=== PATIENT | male | born 1955 ===

== ENCOUNTER 2019-01-14 08:00 | Inpatient (IN) | payer OTHER ==
[2019-02-13] MEDS ORDERED: BUPIVACAINE LIPOSOME/PF (EXPAREL) 266 MG/20 ML VIAL ONE ×2 (07:39→08:11)
[2019-02-13] MEDS ORDERED: HEPARIN NA (PORCINE) 5,000 UNITS/ML 1ML VIAL ONE ×3 (07:40→08:24)
[2019-02-13] MEDS ORDERED: BUPIVACAINE HCL/PF 0.25% (2.5MG/ML) 10 ML VIAL ONE (07:40)
[2019-02-13] MEDS ORDERED: BENZOIN TINCTURE SWABSTICK TP ONE (07:41)
[2019-02-13] MEDS ORDERED: THROMBIN (BOVINE) 20,000 UNIT VIAL TP ONE (07:41)
[2019-02-13] MEDS ORDERED: ROCURONIUM BROMIDE 50 MG/5 ML SYRINGE ONE ×2 (07:49→12:27)
[2019-02-13] MEDS ORDERED: PROPOFOL 20 ML ONE ×16 (07:49→11:31)
[2019-02-13] MEDS ORDERED: fentaNYL CITRATE 250 MCG/5 ML VIAL ONE ×3 (07:49→11:16)
[2019-02-13] MEDS ORDERED: MIDAZOLAM HCL 2 MG/2 ML SINGLE DOSE VIAL ONE ×2 (07:49→08:12)
[2019-02-13] MEDS ORDERED: SUCCINYLCHOLINE CHLORIDE 200 MG/10 ML SYRINGE ONE (07:49)
[2019-02-13] MEDS ORDERED: BUPIVACAINE HCL/PF 0.5% (5 MG/ML) 30 ML VIAL IJ ONE (08:12)
[2019-02-13] MEDS ORDERED: THROMBIN (BOVINE) 5,000 UNIT VIAL TP ONE ×2 (08:25→10:33)
[2019-02-13] MEDS ORDERED: ceFAZolin SODIUM 1 GM VIAL IVPB ONE (09:00)
[2019-02-13] MEDS ORDERED: DEXAMETHASONE SOD PHOSPHATE 4 MG/1 ML VIAL ONE ×2 (09:01→13:18)
[2019-02-13] MEDS ORDERED: ceFAZolin SODIUM 1 GM VIAL ONE ×2 (09:01→14:06)
[2019-02-13] MEDS ORDERED: VANCOMYCIN 1,000 MG VIAL (RESTRICTED TO ID ONLY) ONE (09:01)
[2019-02-13] MEDS ORDERED: ONDANSETRON 4 MG/2 ML VIAL ONE ×2 (09:01→13:18)
[2019-02-13] MEDS ORDERED: VANCOMYCIN 1,000 MG VIAL (RESTRICTED TO ID ONLY) IVPB ONE (09:05)
[2019-02-13] MEDS ORDERED: GELATIN, ABSORBABLE 12-7MM EACH SPONGE TP ONE (10:33)
--- NOTE | 2019-02-13 12:41 | PN ---
Progress Note (short form) - Note Progress Note: 63M s/p L2-L3, L3-L4, & L4-L5 PLIF w/L2-L5 posterior instrumented spinal fusion POD #0: -Admit to ICU post-op. -Pain control: patient received pre-op TLIP block w/Exparel; OK to use HEAD RIGGER if needed; transition to oral analgesia post-op; NO NSAID's. -DVT PPx: -Mechanical only: WILLARD's, SCD's. -Chemical: None. -Incentive spirometry q15 min. -NPO until flatus. -Gibson care; d/c when ambulating. -Post-op Ancef q6h x 3 doses. -PT/OT/Rehab, OOB. -WBAT B/L LE. -No bending, lifting (>5 lbs), or twisting for 9-12 months. -Care per ICU & medical hospitalist Dr. Meadows. -Discharge planning: [facility]; call for appointment; . -Will follow. Octavio Harvey MD (Orthopaedic Surgery).
--- NOTE | 2019-02-13 12:46 | OP ---
Operative Note - Note: Operative Date: 02/13/19 Pre-Operative Diagnosis: L2-L5 spinal stenosis with neurogenic claudication, radiculopathy, and neurological decline. Severity of illness: 4. Operation: 1. L2, L3, L4, L5, S1 bilateral laminectomies facetectomies. 2. L2- S1 posterior instrumentation. 4. L2-L3, L3-L4, L4-L5 PLIF. 5. L2-L3, L3-L4, L4 -L5 insertion biomechanical device. 6. L2-S1 posterolateral arthrodesis. 7. Bone allograft. 8. Bone autograft. 9. Bone marrow aspiration & concentrate autograft. 10. Complex wound closure (30cm) Post-Operative Diagnosis: Same as Pre-op Surgeon: Octavio Harvey Software Design Manager: Tom Harvey Anesthesiologist/EXECUTIVE SEARCH CONSULTANT: Tony Potts Anesthesia: General, Local (TLIP) Specimens Removed: L2-L3, L3-L4, L4-L5 disc Estimated Blood Loss (mls): 300 Drains & Tubes with Location: 1 x deep HemoVac Blood Volume Replaced (mls): 125 (Cell Saver) Fluid Volume Replaced (mls): 1,800 (Crystalloid) Operative Report Dictated: Yes
[2019-02-13] MEDS ORDERED: ACETAMINOPHEN INJECTION 100 ML IVPB ONE (13:39)
[2019-02-13] MEDS ORDERED: GLYCOPYRROLATE 0.2 MG/1 ML VIAL ONE (14:01)
[2019-02-13] MEDS ORDERED: SODIUM CHLORIDE 0.9% P/F 10 ML VIAL IJ ONE (14:06)
[2019-02-13] MEDS ORDERED: MAG HYDROX/AL HYDROX/SIMETH 30 ML UNIT-DOSE CUP PO PRN (14:16)
[2019-02-13] MEDS ORDERED: MAGNESIUM HYDROX 2400MG/30ML ORAL SUSPENSION 30 ML CUP PO PRN (14:16)
[2019-02-13] MEDS ORDERED: LORazepam 2 MG/ML SDV VIAL ONE (14:18)
[2019-02-13] MEDS ORDERED: DEXAMETHASONE SOD PHOSPHATE 4 MG/1 ML VIAL IVPUSH PRN (14:24)
[2019-02-13] MEDS ORDERED: ONDANSETRON 4 MG/2 ML VIAL IVPUSH PRN (14:24)
[2019-02-13] MEDS ORDERED: PROMETHAZINE HCL 25 MG/1 ML VIAL IVPB PRN (14:24)
[2019-02-13] MEDS ORDERED: LABETALOL HCL 5 MG/1 ML (100MG/20 ML VIAL) IVPUSH ONE (14:28)
[2019-02-13] MEDS ORDERED: LACTATED RINGERS SOLUTION 1,000 ML IV SCH ×2 (14:30)
[2019-02-13] MEDS: HYDROmorphone *PCA* 10MG/50ML DISP.SYRIN PCA SCH (14:50)
--- NOTE | 2019-02-13 16:50 | OP ---
DATE OF OPERATION: 02/13/2019 SURGEON: Octavio Harvey MD DIRECTOR ORACLE: Tom Harvey MD PREOPERATIVE DIAGNOSES: Spinal stenosis, L3 to S1, with kyphosis and segmental instability, lumbar spine. POSTOPERATIVE DIAGNOSES: Spinal stenosis, L2 to S1, with associated segmental instability and kyphosis. OPERATION PERFORMED: 1. Laminectomy, left, with undercutting facetectomy, L2 to S1. 2. Laminectomy with undercutting superior facetectomy, right L2 to S1. 3. Posterior lumbar interbody fusion, L2-3, L3-4, L4-5. 4. Insertion of interbody biomechanical device (cage), L2-3, L3-4, L4-5. 5. Pedicle screw instrumentation, L2, 3, 4, 5, S1. 6. Posterolateral arthrodesis, L2, 3, 4, 5, S1. 7. Niño-Angeles osteotomy, L3-4. 8. Use of biplane fluoroscopy and intraoperative neuromonitoring. 9. Use of bone marrow aspirate concentrate. 10. Use of autologous bone graft expanded with allograft 11. Complex wound closure, 30 cm. ANTIBIOTICS GIVEN: Kefzol 2 g, vancomycin 1 g preoperative, Kefzol 1 g given during the time of the procedure. BLOOD LOSS: Approximately 300 mL. Cell Saver blood 25 mL given back. OPERATION DETAILS: Patient correctly identified, brought in the operating room. The patient was placed prone on the operating room table (Kyler table). All associated bony points padded and the table seated at 10 degrees of ante-Trendelenburg. The skin was prepped with Betadine scrub solution, wiped off with alcohol, DuraPrep applied, a window drape applied. A midline incision was utilized from the tip of the spinous process of L1 right down to the tip of the spinous process of S1. The difficulty here was the naming of the levels for surgery. On imaging, we labeled a vestigial disk between S1 and S2 and labeled the S1 vertebral body, which some would have labeled as L5, but we elected to call that S1, but at operative findings was there was motion at this level with this vestigial [place] disk and this was therefore labeled as L5, and then the appropriate decompression which was planned for L3 then was taken up to L2, this because of the numerical nomenclature. To start, the dissection was taken through the skin and subcutaneous tissue down the spinous processes over the lamina and facet joints to expose the entire lumbar spine out to the tips of transverse processes from L2 right down to the ala of the sacrum. Verification of levels noted on lateral fluoroscopic x-ray as well. We also utilized motion at the segments and anatomical guidelines intraoperatively. The laminae from L2 to S1 were completely decompressed using Leksell rongeurs as well as Kerrison up cuts. In order to gain access to the superior facets, both left and right-hand side at each level, the pars interarticularis and inferior facets were osteotomized and broken inwards, and this was done L2 right down to S1, both left and right-hand side. All bone delivered was used for bone graft purposes. The superior facets were clearly visualized with the extensive amount of soft tissue and the extensive stenosis seen at L4-5 noted, but readily noted also at L2-3 and L3-4. Through digital palpation through the theca, the large lumps of disks were readily appreciated. Each disk was then dealt with as follows: The theca was retracted from right to left. Each disk was identified. Bipolar Bovie dealt with the epidural veins, and each disk was incised and disk removed using appropriate disk shaving devices and serrated curettes to facilitate removal of any material on the endplates, and pituitary rongeurs to remove all the disk material appropriately. Each disk was resected down to healthy bleeding endplates, cranially and caudally, at each respective level, that is, L2-3, L3-4, and L4-5. Once this at each one had been performed, the cages were press-fitted into position, that is, shaved to 1 level less than the actual size of implant utilized. Prior to the insertion of each cage, the inter-disk space was packed with autologous bone graft. This was bone that had been harvested from the posterior elements, milled and appropriately packed into the inter-disk space appropriately. Once this had been performed, the appropriate cages were inserted, as outlined above. The cages at L3-4 measured 9 mm; that at L4-5, 11 mm; and that at L2-3, 10 mm. These were Fortilink spaces. Excellent verification of the cages verified on x-ray, revealed beautiful reconstitution of disk height and the entire theca was freed, each nerve root seen to exit out of each foramen appropriately. Once this had been performed, with no complications, the pedicle screws were seated and each pedicle screw was inserted using anatomic guidelines. A 4.5 drill was utilized, each drilled, and each pedicle screw measured 6.5 x 45. Each pedicle screw was then tested with intraoperative neuromonitoring and found to be completely safe. The right L5 screw measured 14 mA. The rest of the screws were all above 20 mA. Two rods were contoured, one measured 110 mm and the other measured 120 mm. These rods were seated in position into the tulips of each pedicle screw. The caps were applied appropriately and the torque devices tightened the screws to the appropriate wind tunnel technician levels. A medium crosslink was utilized. The wound was thoroughly lavaged throughout. At that point, 120 mL of marrow as aspirated from the right posterior ilium. A Jamshidi needle was placed separately into the ilial bed to aspirate 120 mL. These were spun down by the team for the CD34 stem cells. These were mixed with the autograft as well as the allograft strips. The combination of autologous and allograft bone was impacted into the intertransverse plane from L2 to S1, both left and right-hand side, to thus complete the posterolateral arthrodesis. The wounds again were thoroughly lavaged. No complications. AP and lateral x-rays revealed excellent seating of the implants, no sponges in situ. No intraoperative neuromonitoring complications noted. The wounds were closed, as follows, that is, after a small debridement of the erector spinae muscles because of fragmented muscle. The closure was a complex closure, with muscle 1 Vicryl, fascia 1 Vicryl, subcutaneous 1 and 2-0 Vicryl in separate layers, and a 3-0 Monocryl with Steri-Strips applied to the skin. This measured 30 cm. The deep space of the wound was drained using a 1/8-inch Hemovac drain. No complications. Overall, operation went extremely well. Severe stenosis of the theca was completely freed, all disks dealt with appropriately, and the spine stabilized. Due to the Niño-Angeles osteotomy, the resection resulted in an excellent hoahaoism of lordosis. MD JENN Wood/[id number]
--- NOTE | 2019-02-13 17:41 | CONSULT ---
Consultation: REQUESTING PROVIDER: Dr. Harvey CONSULT REQUEST: We have been asked to medically evaluate this patient for post- operative monitoring s/p L2-L3, L3-L4, & L4-L5 PLIF w/L2-L5 posterior instrumented spinal fusion. HISTORY OF PRESENT ILLNESS: David Angulo is a 63 year old male with a past medical history of NH (5 years ago), HLD, GERD, kidney stones, spinal stenosis with neurogenic claudication who presented for surgery with Dr. Harvey. He underwent L2, L3, L4, L5, S1 bilateral laminectomies facetectomies, L2-S1 posterior instrumentation., L2-L3, L3-L4, L4-L5 PLIF, L2-L3, L3-L4, L4-L5 insertion biomechanical device, L2-S1 posterolateral arthrodesis, Bone allograft, bone autograft, Bone marrow aspiration & concentrate autograft, and Complex wound closure (30cm). EBL 300cc , replaced with 125cc of cell saver and 1800 fluids. Patient arrived in stable condition with intermittent lethargy from anesthesia with linares catheter, and dressing dry and intact. Complained of back soreness. Denied chest pain, shortness of breath, abdominal pain, fever, chills, weakness, nausea, vomiting. PMHx: NH (5 years ago), HLD, GERD, kidney stones, spinal stenosis with neurogenic claudication Surgery: Kidney stones Social: former smoker, marijuana user REVIEW OF SYSTEMS: CONSTITUTIONAL: Absent: fever, chills, diaphoresis, generalized weakness, malaise, loss of appetite, weight change HEENT: Absent: rhinorrhea, nasal congestion, throat pain, throat swelling, difficulty swallowing, mouth swelling, ear pain, eye pain, visual changes CARDIOVASCULAR: Absent: chest pain, syncope, palpitations, irregular heart rate, lightheadedness , peripheral edema RESPIRATORY: Absent: cough, shortness of breath, dyspnea with exertion, orthopnea, wheezing, stridor, hemoptysis GASTROINTESTINAL: Absent: abdominal pain, abdominal distension, nausea, vomiting, diarrhea, constipation, melena, hematochezia GENITOURINARY: Absent: dysuria, frequency, urgency, hesitancy, hematuria, flank pain, genital pain MUSCULOSKELETAL: back pain Absent: myalgia, arthralgia, joint swelling, neck pain SKIN: Absent: rash, itching, pallor HEMATOLOGIC/IMMUNOLOGIC: Absent: easy bleeding, easy bruising, lymphadenopathy, frequent infections ENDOCRINE: Absent: unexplained weight gain, unexplained weight loss, heat intolerance, cold intolerance NEUROLOGIC: Absent: headache, focal weakness or paresthesias, dizziness, unsteady gait, seizure, mental status changes, bladder or bowel incontinence PSYCHIATRIC: Absent: anxiety, depression, suicidal or homicidal ideation, hallucinations. PHYSICAL EXAMINATION Vital Signs - 24 hr 02/13/19 02/13/19 02/13/19 06:44 14:13 14:30 Temperature 98.2 F 98.3 F Pulse Rate 92 H 93 H 98 H Respiratory 20 16 18 Rate Blood Pressure 115/66 145/107 H 151/61 O2 Sat by Pulse 98 91 L Oximetry (%) 02/13/19 02/13/19 02/13/19 14:45 14:50 15:00 Temperature Pulse Rate 89 87 96 H Respiratory 18 16 14 Rate Blood Pressure 132/75 132/75 147/89 O2 Sat by Pulse 100 100 100 Oximetry (%) 02/13/19 02/13/19 02/13/19 15:15 15:20 15:30 Temperature Pulse Rate 94 H 104 H 104 H Respiratory 18 14 18 Rate Blood Pressure 123/79 131/74 131/74 O2 Sat by Pulse 100 100 99 Oximetry (%) 02/13/19 02/13/19 02/13/19 15:45 15:50 16:00 Temperature Pulse Rate 91 H 88 88 Respiratory 14 12 16 Rate Blood Pressure 139/108 H 143/83 143/83 O2 Sat by Pulse 100 97 97 Oximetry (%) 02/13/19 02/13/19 02/13/19 16:15 16:30 16:45 Temperature 98.6 F Pulse Rate 89 85 85 Respiratory 12 16 16 Rate Blood Pressure 145/80 139/80 137/84 O2 Sat by Pulse 99 98 100 Oximetry (%) GENERAL: Awake, alert, and fully oriented, in no acute distress. HEAD: Normal with no signs of trauma. EYES: Pupils equal, round and reactive to light, extraocular movements intact, sclera anicteric, conjunctiva clear. No lid lag. EARS, NOSE, THROAT: Ears normal, nares patent, oropharynx clear without exudates. Moist mucous membranes. NECK: Normal range of motion, supple without lymphadenopathy, JVD, or masses. LUNGS: Breath sounds equal, clear to auscultation bilaterally. No wheezes, and no crackles. No accessory muscle use. HEART: Regular rate and rhythm, normal S1 and S2 without murmur, rub or gallop. ABDOMEN: Soft, nontender, not distended, normoactive bowel sounds, no guarding, no rebound, no masses. No hepatomegaly or splenomegaly. MUSCULOSKELETAL: Normal range of motion at all joints. No bony deformities or tenderness. No CVA tenderness. UPPER EXTREMITIES: 2+ pulses, warm, well-perfused. No cyanosis. No clubbing. Cap refill <2 seconds. No peripheral edema. LOWER EXTREMITIES: 2+ pulses, warm, well-perfused. No calf tenderness. No peripheral edema. NEUROLOGICAL: Cranial nerves II-XII intact. Normal speech. Normal gait. PSYCHIATRIC: Cooperative. Good eye contact. Appropriate mood and affect. SKIN: Warm, dry, normal turgor, no rashes or lesions noted. Laboratory Results - last 24 hr 02/13/19 02/13/19 06:25 07:35 Blood Type B POSITIVE B POSITIVE Antibody Screen Negative Active Medications Generic Name Dose Route Start Last Admin Trade Name Freq PRN Reason Stop Dose Admin Al Hydroxide/Mg Hydroxide 30 ml 02/13/19 14:16 Mylanta Oral Suspension - PO Q4H PRN DYSPEPSIA Atorvastatin Calcium 20 mg 02/14/19 22:00 Lipitor - PO HS HELENE Dexamethasone Sodium Phosphate 4 mg 02/13/19 14:24 Decadron Injection - IVPUSH ONCE PRN NAUSEA AND/OR VOMITING Diphenhydramine HCl 12.5 mg 02/13/19 14:24 Benadryl Injection - IVPUSH ONCE PRN FOR ITCHING Fentanyl 50 mcg 02/13/19 14:24 Sublimaze Injection - IVPUSH 02/14/19 02:00 [id number] PRN PAIN-PACU ORDER X 4 DOSES ONLY Hydromorphone HCl 10 mg 02/13/19 14:30 02/13/19 14:50 Hydromorphone 10 Mg/50 Ml-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 02/20/19 14:25 10 mg [employer]ER HELENE Administration Protocol Cefazolin Sodium/Dextrose 2 gm in 50 mls @ 100 mls/hr 02/13/19 14:30 Ancef 2 Gm Premixed Ivpb - IVPB 02/14/19 02:59 Q6H HELENE Lactated Ringer's 1,000 mls @ 125 mls/hr 02/13/19 14:30 02/13/19 14:50 Lactated Ringers Solution IV 02/14/19 06:00 125 mls/hr ASDIR HELENE Administration Lactated Ringer's 1,000 mls @ 125 mls/hr 02/13/19 14:30 02/13/19 17:33 Lactated Ringers Solution IV Not Given ASDIR HELNEE Magnesium Hydroxide 30 ml 02/13/19 14:16 Milk Of Magnesia - PO PRN PRN CONSTIPATION [id number] Ethyl Esters 2 gm 02/14/19 10:00 Lovaza - PO DAILY [facility] Ondansetron HCl 4 mg 02/13/19 14:16 Zofran Injection IVPUSH Q6H PRN NAUSEA Ondansetron HCl 4 mg 02/13/19 14:24 Zofran Injection IVPUSH Q4H PRN NAUSEA AND/OR VOMITING Pantoprazole Sodium 40 mg 02/14/19 10:00 Protonix - PO DAILY [facility] Promethazine HCl 12.5 mg 02/13/19 14:24 Phenergan Injection - IVPB Q6H PRN NAUSEA AND/OR VOMITING Ranitidine HCl 150 mg 02/14/19 10:00 Zantac - PO DAILY [facility] Senna/Docusate Sodium 2 tablet 02/13/19 22:00 Pericolace - PO BID HELENE ASSESSMENT/PLAN: David Angulo is a 63 year old male with a past medical history of NH (5 years ago), HLD, GERD, kidney stones, spinal stenosis with neurogenic claudication who is admitted to the ICU for continued monitoring s/p L2-L3, L3-L4, & L4-L5 PLIF w/L2-L5 posterior instrumented spinal fusion with Dr. Harvey. 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 - transition to oral meds as soon as tolerating - no NSAIDS CARDIOLOGY - continue atorvastatin 20mg daily - continue LR at 125cc/hr - post-op labs with no acute derangements RESPIRATORY - on NC, satting well - encourage incentive spirometry RENAL - continue to monitor urine output and adjust fluids as necessary - on LR 125cc/hr - no metabolic derangements on post-op labs GASTROINTESTINAL - ranitidine 150mg daily - protonix 40mg daily - zofran and promethazine for nausea - senna colace for constipation - NPO until flatus GENITOURINARY - linares in, monitor urine output - can d/c linares when ambulating INFECTIOUS DISEASE - received cefazolin intra-op - to complete cefazolin course - continue to monitor for signs of infection, fever, WBC count HEMATOLOGY - continue to monitor for signs of bleeding - H/H with no signs of anemia - WBC elevated likely in the setting post-operative inflammation MUSCULOSKELETAL - OOB as tolerated - PT in the morning - no bending/lifting/twisting for 9-12 months - f/u with Dr. Harvey in outpatient office F/E/N - LR at 125cc/hr - continue to monitor electrolytes and transfuse as necessary - NPO until flatus LINES - L hand inserted 02/13 PROPHYLAXIS - SCDs - no chemical prophylaxis CODE - full code DISPO - continue to monitor in ICU Thank you for this consultative opportunity. TRIPP GARZA DO - PGY-1 INTERNAL MEDICINE Visit type - Emergency Visit Emergency Visit: No - New Patient This patient is new to me today: Yes Date on this admission: 02/13/19 - Critical Care Critical Care patient: Yes Total Critical Care Time (in minutes): 35 Critical Care Statement: The care of this patient involved high complexity decision making to prevent further life threatening deterioration of the patient 's condition and/or to evaluate & treat vital organ system(s) failure or risk of failure.
[2019-02-13] MEDS: LACTATED RINGERS SOLUTION 1,000 ML IV SCH (17:57)
--- NOTE | 2019-02-13 19:43 | CONSULT ---
Consult Consult Specialty:: IM Reason for Consultation:: post-op medical management - History Source History Provided By: Patient, Medical Record - Past Medical History Cardio/Vascular: Yes: HTN - Alcohol/Substance Use Hx Alcohol Use: No - Smoking History Smoking history: Former smoker Have you smoked in the past 12 months: No If you are a former smoker, when did you quit?: MORE THAN 10 YEARS Home Medications - Allergies Allergies/Adverse Reactions: Allergies Allergy/AdvReac Type Severity Reaction Status Date / Time ibuprofen Allergy Verified 02/12/19 14:18 latex Allergy Rash Verified 02/12/19 14:18 - Home Medications Home Medications: Ambulatory Orders Aspirin [Aspirin EC] 81 mg PO DAILY 02/12/19 Diclofenac Sodium [Voltaren -] 75 mg PO HS 02/12/19 Icosapent Ethyl [Vascepa] 2 gm PO DAILY 02/12/19 Lactose-Reduced Food/Fiber [Isosource 1.5 Oswaldo Tube Feed Lq] 1,000 ml PO DAILY Oxycodone HCl/Acetaminophen [Percocet 5-325 mg Tablet] 1 - 2 tab PO PRN Ranitidine HCl [Zantac] 150 mg PO DAILY 02/12/19 Simvastatin [Zocor -] 40 mg PO DAILY 02/12/19 Family Disease History - Family Disease History Family History: Unremarkable Review of Systems - Review of Systems Constitutional: reports: No Symptoms Eyes: reports: No Symptoms HENT: reports: No Symptoms Neck: reports: No Symptoms Cardiovascular: reports: No Symptoms Respiratory: reports: No Symptoms Gastrointestinal: reports: No Symptoms Genitourinary: reports: No Symptoms Musculoskeletal: reports: Back Pain Integumentary: reports: No Symptoms Neurological: reports: No Symptoms Endocrine: reports: No Symptoms Hematology/Lymphatic: reports: No Symptoms Psychiatric: reports: No Symptoms Pain Intensity: 7 Physical Exam Vital Signs: Vital Signs Temperature 97.6 F 02/13/19 17:40 Pulse Rate 79 02/13/19 18:10 Respiratory Rate 12 02/13/19 18:10 Blood Pressure 133/78 02/13/19 18:10 O2 Sat by Pulse Oximetry (%) 97 02/13/19 18:10 Constitutional: Yes: Well Nourished, No Distress, Calm Eyes: Yes: WNL HENT: Yes: WNL Neck: Yes: WNL Cardiovascular: Yes: WNL Respiratory: Yes: WNL Gastrointestinal: Yes: WNL Renal/: Yes: WNL Musculoskeletal: Yes: Back Pain, Joint Stiffness Extremities: Yes: WNL Edema: No Integumentary: Yes: WNL Wound/Incision: Yes: Clean/Dry, Well Approximated, Dressing Dry and Intact Neurological: Yes: WNL ...Motor Strength: WNL Psychiatric: Yes: WNL Assessment/Plan 63 yo man S/P 1. L2, L3, L4, L5, S1 bilateral laminectomies facetectomies. 2. L2-S1 posterior instrumentation. 4. L2-L3, L3-L4, L4-L5 PLIF. 5. L2-L3, L3-L4 , L4-L5 insertion biomechanical device. 6. L2-S1 posterolateral arthrodesis. 7. Bone allograft. 8. Bone autograft. 9. Bone marrow aspiration & concentrate autograft. 10. Complex wound closure (30cm). cont pain management. incentive spirometry. cont stool sofeteners to avoid opioid induced constipation. -GI, DVT prophylaxis. -cont zofran for nausea -ID: on ancef ryan-operatively -HLD: cont lipitor. CPK levels ordered for AM. -oral diet when more awake and + flatus. -DC linares when ambulating -PT/OT/OOB as tolerated -AM labs -will f/u in AM
[2019-02-13] MEDS: CEFAZOLIN 2 GM/D5W 2 GM/50 ML ML IVPB SCH (21:05)
[2019-02-13] MEDS ORDERED: PANTOPRAZOLE 40 MG TABLET (FP) PO ONE (21:29)
[2019-02-13 21:47] LABS: HEMATOCRIT 37.7 % (35.4-49); HEMOGLOBIN 12.8 GM/dL (11.7-16.9); MCH 31.8 pg (25.7-33.7); MEAN CELL VOLUME 93.4 fl (80-96); MEAN PLT VOLUME 8.6 fl (7.5-11.1); PLATELET COUNT 235 K/MM3 (134-434); RBC 4.04 M/mm3 (4.00-5.60); RDW 14.6 % (11.9-15.9); WHITE BLOOD COUNT 16.2 K/mm3 (4.0-10.0)
[2019-02-13 22:02] LABS: BLOOD UREA NITROGEN 18.4 mg/dL (7-18); CALCIUM 8.5 mg/dL (8.5-10.1); CREATININE 0.8 mg/dL (0.55-1.3); POTASSIUM 4.2 mmol/L (3.5-5.1)
[2019-02-13] MEDS: SENNOSIDES/DOCUSATE COMBO (SENNA PLUS) TABLET (UD) PO SCH (22:31)
[2019-02-14] MEDS: ONDANSETRON 4 MG/2 ML VIAL IVPUSH PRN ×2 (00:39→07:36)
[2019-02-14] MEDS ORDERED: RANITIDINE HCL 150 MG TABLET (FP) PO ONE ×2 (02:05→02:15)
[2019-02-14] MEDS: CEFAZOLIN 2 GM/D5W 2 GM/50 ML ML IVPB SCH (02:38)
[2019-02-14] MEDS ORDERED: METOPROLOL TARTRATE 5 MG/5 ML VIAL IVPUSH ONE (06:11)
[2019-02-14 07:13] LABS: HEMATOCRIT 36.7 % (35.4-49); HEMOGLOBIN 12.3 GM/dL (11.7-16.9); MCH 31.6 pg (25.7-33.7); MCHC 33.7 g/dl (32.0-35.9); MEAN CELL VOLUME 93.9 fl (80-96); MEAN PLT VOLUME 8.9 fl (7.5-11.1); PLATELET COUNT 215 K/MM3 (134-434); RDW 14.5 % (11.9-15.9); WHITE BLOOD COUNT 18.5 K/mm3 (4.0-10.0)
[2019-02-14 07:14] LABS: BLOOD UREA NITROGEN 18.4 mg/dL (7-18); CALCIUM 8.6 mg/dL (8.5-10.1); CREATININE 0.9 mg/dL (0.55-1.3); MAGNESIUM 1.9 mg/dL (1.8-2.4); PHOSPHOROUS 2.4 mg/dL (2.5-4.9); POTASSIUM 3.5 mmol/L (3.5-5.1)
[2019-02-14] MEDS ORDERED: PT OWN MED DRAWER 7, Y5N ONE (09:19)
[2019-02-14] MEDS: OMEGA-3 ACID ETHYL ESTERS (FATTY-ACIDS) 1 GM CAPSULE (FP) PO SCH ×2 (09:23→09:27)
[2019-02-14] MEDS: LACTATED RINGERS SOLUTION 1,000 ML IV SCH ×2 (09:24→18:06)
[2019-02-14] MEDS: PANTOPRAZOLE 40 MG TABLET (FP) PO SCH (09:24)
[2019-02-14] MEDS ORDERED: RANITIDINE HCL 150 MG TABLET (FP) PO SCH (10:00)
[2019-02-14] MEDS: SENNOSIDES/DOCUSATE COMBO (SENNA PLUS) TABLET (UD) PO SCH (11:09)
--- NOTE | 2019-02-14 11:26 | PN ---
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 POD#1, vss, aaox3, pain fairly well controlled. Will continue torch brazer. No anesthesia complications.
--- NOTE | 2019-02-14 11:40 | PN ---
Physical Exam: SUBJECTIVE: Patient seen and examined at the bedside. Overnight the patient was nauseated and had an episode of vomiting and the patient's BPs were elevated. He got a dose of lopressor and some zofran which improved his symptoms. The patient has also had a slightly elevated white count since coming out of surgery , will continue to follow. OBJECTIVE: Vital Signs Period Temp Pulse Resp BP Sys/Lara Pulse Ox Last 24 Hr 97.6 F-98.6 F 77-104 12-24 123-166/61-108 91-100 GENERAL: The patient is awake, alert, and fully oriented, in no acute distress. HEAD: Normal with no signs of trauma. EYES: PERRL, extraocular movements intact, sclera anicteric, conjunctiva clear. No ptosis. ENT: Ears normal, nares patent, oropharynx clear without exudates, moist mucous membranes. NECK: Trachea midline, full range of motion, supple. LUNGS: Breath sounds equal, clear to auscultation bilaterally, no wheezes, no crackles, no accessory muscle use. HEART: Regular rate and rhythm, S1, S2 without murmur, rub or gallop. ABDOMEN: Soft, nontender, nondistended, normoactive bowel sounds, no guarding, no rebound. EXTREMITIES: 2+ pulses, warm, well-perfused, no edema. NEUROLOGICAL: Cranial nerves II through XII grossly intact. Normal speech, gait not observed. PSYCH: Normal mood, normal affect. SKIN: Warm, dry, normal turgor, no rashes or lesions noted Laboratory Results - last 24 hr 02/13/19 02/13/19 02/14/19 21:00 21:00 05:53 WBC 16.2 H 18.5 H RBC 4.04 3.90 L Hgb 12.8 12.3 Hct 37.7 36.7 MCV 93.4 93.9 MCH 31.8 31.6 MCHC 34.0 33.7 RDW 14.6 14.5 Plt Count 235 215 MPV 8.6 8.9 Sodium 138 Potassium 4.2 Chloride 103 Carbon Dioxide 28 Anion Gap 7 L BUN 18.4 H Creatinine 0.8 Est GFR (CKD-EPI)AfAm 108.65 Est GFR (CKD-EPI)NonAf 93.74 Random Glucose 133 H Calcium 8.5 Phosphorus Magnesium Creatine Kinase Creatine Kinase Index CK-MB (CK-2) 02/14/19 02/14/19 05:53 05:53 WBC RBC Hgb Hct MCV MCH MCHC RDW Plt Count MPV Sodium 137 Potassium 3.5 Chloride 101 Carbon Dioxide 27 Anion Gap 9 BUN 18.4 H Creatinine 0.9 Est GFR (CKD-EPI)AfAm 103.51 Est GFR (CKD-EPI)NonAf 89.31 Random Glucose 157 H Calcium 8.6 Phosphorus 2.4 L Magnesium 1.9 Creatine Kinase 690 H Creatine Kinase Index 0.6 CK-MB (CK-2) 4.5 H Active Medications Generic Name Dose Route Start Last Admin Trade Name Freq PRN Reason Stop Dose Admin Al Hydroxide/Mg Hydroxide 30 ml 02/13/19 14:16 02/13/19 22:38 Mylanta Oral Suspension - PO 30 ml Q4H PRN Administration DYSPEPSIA Atorvastatin Calcium 20 mg 02/14/19 22:00 Lipitor - PO HS HELENE Dexamethasone Sodium Phosphate 4 mg 02/13/19 14:24 Decadron Injection - IVPUSH ONCE PRN NAUSEA AND/OR VOMITING Diphenhydramine HCl 12.5 mg 02/13/19 14:24 Benadryl Injection - IVPUSH ONCE PRN FOR ITCHING Hydromorphone HCl 10 mg 02/13/19 14:30 02/13/19 14:50 Hydromorphone 10 Mg/50 Ml-Ns INDUSTRIAL TRUCK DRIVER 02/20/19 14:25 10 mg INDUSTRIAL TRUCK DRIVER HELENE Administration Protocol Lactated Ringer's 1,000 mls @ 125 mls/hr 02/13/19 17:45 02/14/19 09:24 Lactated Ringers Solution IV 125 mls/hr ASDIR HELENE Administration Magnesium Hydroxide 30 ml 02/13/19 14:16 Milk Of Magnesia - PO PRN PRN CONSTIPATION Calpv-9-Kjgc Ethyl Esters 2 gm 02/14/19 10:00 02/14/19 09:27 Lovaza - PO Not Given DAILY [facility] Ondansetron HCl 4 mg 02/13/19 14:16 02/14/19 07:36 Zofran Injection IVPUSH 4 mg Q6H PRN Administration NAUSEA Pantoprazole Sodium 40 mg 02/14/19 10:00 02/14/19 09:24 Protonix - PO 40 mg DAILY HELENE Administration Ranitidine HCl 150 mg 02/14/19 10:00 Zantac - PO DAILY [facility] Senna/Docusate Sodium 2 tablet 02/13/19 22:00 02/14/19 11:09 Pericolace - PO 2 tablet BID HELENE Administration ASSESSMENT/PLAN: David Angulo is a 63 year old male with a past medical history of [place] (5 years ago), HLD, GERD, kidney stones, spinal stenosis with neurogenic claudication who is admitted to the ICU for continued monitoring s/p L2-L3, L3-L4, & L4-L5 PLIF w/L2-L5 posterior instrumented spinal fusion with Dr. Harvey. L2-L3, L3-L4, & L4-L5 PLIF w/L2-L5 posterior instrumented spinal fusion spinal stenosis HLD GERD NEUROLOGIC - pain medication as per anesthesia - INDUSTRIAL TRUCK DRIVER pump - transition to oral meds as soon as tolerating - no NSAIDS CARDIOLOGY - continue atorvastatin 20mg daily - continue LR at 125cc/hr - post-op labs with no acute derangements RESPIRATORY - encourage incentive spirometry RENAL - continue to monitor urine output and adjust fluids as necessary - on LR 125cc/hr - no metabolic derangements on post-op labs GASTROINTESTINAL - ranitidine 150mg daily - protonix 40mg daily - zofran and promethazine for nausea - senna colace for constipation - NPO until flatus GENITOURINARY - linares in, monitor urine output - can d/c linares when ambulating INFECTIOUS DISEASE - received cefazolin intra-op - to complete cefazolin course - continue to monitor for signs of infection, fever, WBC count HEMATOLOGY - continue to monitor for signs of bleeding - H/H with no signs of anemia - WBC elevated likely in the setting post-operative inflammation, will continue to follow MUSCULOSKELETAL - OOB as tolerated - PT today - no bending/lifting/twisting for 9-12 months - f/u with Dr. Harvey in outpatient office F/E/N - LR at 125cc/hr - continue to monitor electrolytes and transfuse as necessary - NPO until flatus LINES - L hand inserted 02/13 PROPHYLAXIS - SCDs - no chemical prophylaxis CODE - full code DISPO - continue to monitor in ICU. Once patient is able to get OOB and passes flatus , can advance diet and will be stable for transfer to the medicine floors. Visit type - Emergency Visit Emergency Visit: No - New Patient This patient is new to me today: Yes Date on this admission: 02/14/19 - Critical Care Critical Care patient: Yes Total Critical Care Time (in minutes): 40 Critical Care Statement: The care of this patient involved high complexity decision making to prevent further life threatening deterioration of the patient 's condition and/or to evaluate & treat vital organ system(s) failure or risk of failure. ATTENDING PHYSICIAN STATEMENT I saw and evaluated the patient. I reviewed the resident's note and discussed the case with the resident. I agree with the resident's findings and plan as documented. SUBJECTIVE: OBJECTIVE: ASSESSMENT AND PLAN:
--- NOTE | 2019-02-14 12:40 | PN ---
Teaching Attending Note Name of Resident: Yany Tracey ([email or web address]) ATTENDING PHYSICIAN STATEMENT I saw and evaluated the patient. I reviewed the resident's note and discussed the case with the resident. I agree with the resident's findings and plan as documented. SUBJECTIVE: Patient seen and examined in the ICU. Awake and alert. Pain improved with use of LEATHER BELT SHAPER. No CP or SOB. Intake & Output 02/11/19 02/12/19 02/13/19 02/14/19 23:59 23:59 23:59 23:59 Intake Total 2775 925 Output Total 1730 600 Balance 1045 325 Weight 230 lb 230 lb Last Vital Signs Temp Pulse Resp BP Pulse Ox 98.1 F 67 21 H 155/83 97 02/14/19 06:00 02/14/19 12:00 02/14/19 12:00 02/14/19 12:00 02/14/19 09:00 Active Medications Al Hydroxide/Mg Hydroxide (Mylanta Oral Suspension -) 30 ml PO Q4H PRN PRN Reason: DYSPEPSIA Last Admin: 02/13/19 22:38 Dose: 30 ml Atorvastatin Calcium (Lipitor -) 20 mg PO HS [facility] Dexamethasone Sodium Phosphate (Decadron Injection -) 4 mg IVPUSH ONCE PRN PRN Reason: NAUSEA AND/OR VOMITING Diphenhydramine HCl (Benadryl Injection -) 12.5 mg IVPUSH ONCE PRN PRN Reason: FOR ITCHING Hydromorphone HCl (Hydromorphone 10 Mg/50 Ml-Ns) 10 mg LEATHER BELT SHAPER LEATHER BELT SHAPER [facility]; Protocol Stop: 02/20/19 14:25 Last Admin: 02/13/19 14:50 Dose: 10 mg Lactated Ringer's (Lactated Ringers Solution) 1,000 mls @ 125 mls/hr IV ASDIR [facility]ENE Last Admin: 02/14/19 09:24 Dose: 125 mls/hr Magnesium Hydroxide (Milk Of Magnesia -) 30 ml PO PRN PRN PRN Reason: CONSTIPATION Socwa-9-Ucuf Ethyl Esters (Lovaza -) 2 gm PO DAILY [facility] Last Admin: 02/14/19 09:27 Dose: Not Given Ondansetron HCl (Zofran Injection) 4 mg IVPUSH Q6H PRN PRN Reason: NAUSEA Last Admin: 02/14/19 07:36 Dose: 4 mg Pantoprazole Sodium (Protonix -) 40 mg PO DAILY [facility] Last Admin: 02/14/19 09:24 Dose: 40 mg Ranitidine HCl (Zantac -) 150 mg PO DAILY [facility] Senna/Docusate Sodium (Pericolace -) 2 tablet PO BID [facility] Last Admin: 02/14/19 11:09 Dose: 2 tablet GENERAL: Awake, alert, oriented, in no acute distress. HEAD: Normal with no signs of trauma. EYES: Pupils equal, round and reactive to light, extraocular movements intact, sclera anicteric, conjunctiva clear. No lid lag. EARS, NOSE, THROAT: Ears normal, nares patent, oropharynx clear without exudates. Moist mucous membranes. NECK: Normal range of motion, supple without lymphadenopathy, JVD, or masses. LUNGS: Breath sounds equal, clear to auscultation bilaterally. No wheezes, and no crackles. No accessory muscle use. HEART: Regular rate and rhythm, normal S1 and S2 without murmur, rub or gallop. ABDOMEN: Soft, nontender, not distended, normoactive bowel sounds, no guarding, no rebound, no masses. No hepatomegaly or splenomegaly. MUSCULOSKELETAL: Normal range of motion at all joints. No bony deformities or tenderness. No CVA tenderness. UPPER EXTREMITIES: 2+ pulses, warm, well-perfused. No cyanosis. No clubbing. Cap refill <2 seconds. No peripheral edema. LOWER EXTREMITIES: 2+ pulses, warm, well-perfused. No calf tenderness. No peripheral edema. NEUROLOGICAL: Non-focal exam PSYCHIATRIC: Cooperative. Good eye contact. Appropriate mood and affect. SKIN: Warm, dry, normal turgor, no rashes or lesions noted. Laboratory Results - last 24 hr 02/13/19 02/13/19 02/14/19 21:00 21:00 05:53 WBC 16.2 H 18.5 H RBC 4.04 3.90 L Hgb 12.8 12.3 Hct 37.7 36.7 MCV 93.4 93.9 MCH 31.8 31.6 MCHC 34.0 33.7 RDW 14.6 14.5 Plt Count 235 215 MPV 8.6 8.9 Sodium 138 Potassium 4.2 Chloride 103 Carbon Dioxide 28 Anion Gap 7 L BUN 18.4 H Creatinine 0.8 Est GFR (CKD-EPI)AfAm 108.65 Est GFR (CKD-EPI)NonAf 93.74 Random Glucose 133 H Calcium 8.5 Phosphorus Magnesium Creatine Kinase Creatine Kinase Index CK-MB (CK-2) 02/14/19 02/14/19 05:53 05:53 WBC RBC Hgb Hct MCV MCH MCHC RDW Plt Count MPV Sodium 137 Potassium 3.5 Chloride 101 Carbon Dioxide 27 Anion Gap 9 BUN 18.4 H Creatinine 0.9 Est GFR (CKD-EPI)AfAm 103.51 Est GFR (CKD-EPI)NonAf 89.31 Random Glucose 157 H Calcium 8.6 Phosphorus 2.4 L Magnesium 1.9 Creatine Kinase 690 H Creatine Kinase Index 0.6 CK-MB (CK-2) 4.5 H ASSESSMENT/PLAN: POD #1: 1. L2, L3, L4, L5, S1 bilateral laminectomies facetectomies. 2. L2-S1 posterior instrumentation. 3. L2-L3, L3-L4, L4-L5 PLIF. 4. L2-L3, L3-L4, L4-L5 insertion biomechanical device. 5. L2-S1 posterolateral arthrodesis. 6. Bone allograft. 7. Bone autograft. 8. Bone marrow aspiration & concentrate autograft. 9. Complex wound closure (30cm) Spinal stenosis HLD GERD Leukocytosis: etiology to be determined Pain control VTE prophylaxis O2 as needed Incentive Spirometry PO as tolerated OOB to chair Monitor WBC Floor when cleared by surgery Dr Cancino
[2019-02-14] MEDS: HYDROmorphone *PCA* 10MG/50ML DISP.SYRIN PCA SCH (18:02)
--- NOTE | 2019-02-14 18:10 | PN ---
Progress Note, Physician Chief Complaint: + for back pain denies chest pain, palpitations, feevr, diarrhea. - Current Medication List Current Medications: Active Medications Al Hydroxide/Mg Hydroxide (Mylanta Oral Suspension -) 30 ml PO Q4H PRN PRN Reason: DYSPEPSIA Last Admin: 02/13/19 22:38 Dose: 30 ml Atorvastatin Calcium (Lipitor -) 20 mg PO HS [facility] Dexamethasone Sodium Phosphate (Decadron Injection -) 4 mg IVPUSH ONCE PRN PRN Reason: NAUSEA AND/OR VOMITING Diphenhydramine HCl (Benadryl Injection -) 12.5 mg IVPUSH ONCE PRN PRN Reason: FOR ITCHING Hydromorphone HCl (Hydromorphone 10 Mg/50 Ml-Ns) 10 mg RESEARCH AND DEVELOPMENT TECHNICIAN RESEARCH AND DEVELOPMENT TECHNICIAN [facility]; Protocol Stop: 02/20/19 14:25 Last Admin: 02/13/19 14:50 Dose: 10 mg Lactated Ringer's (Lactated Ringers Solution) 1,000 mls @ 125 mls/hr IV ASDIR [facility] Last Admin: 02/14/19 09:24 Dose: 125 mls/hr Magnesium Hydroxide (Milk Of Magnesia -) 30 ml PO PRN PRN PRN Reason: CONSTIPATION Twbrj-6-Uxat Ethyl Esters (Lovaza -) 2 gm PO DAILY [facility] Last Admin: 02/14/19 09:27 Dose: Not Given Ondansetron HCl (Zofran Injection) 4 mg IVPUSH Q6H PRN PRN Reason: NAUSEA Last Admin: 02/14/19 07:36 Dose: 4 mg Pantoprazole Sodium (Protonix -) 40 mg PO DAILY [facility] Last Admin: 02/14/19 09:24 Dose: 40 mg Ranitidine HCl (Zantac -) 150 mg PO DAILY [facility] Senna/Docusate Sodium (Pericolace -) 2 tablet PO BID [facility] Last Admin: 02/14/19 11:09 Dose: 2 tablet - Objective Vital Signs: Vital Signs Temperature 98.3 F 02/14/19 14:00 Pulse Rate 100 H 02/14/19 16:00 Respiratory Rate 22 H 02/14/19 16:00 Blood Pressure 146/76 02/14/19 16:00 O2 Sat by Pulse Oximetry (%) 97 02/14/19 09:00 Constitutional: Yes: Well Nourished, No Distress Eyes: Yes: WNL HENT: Yes: WNL Neck: Yes: WNL Cardiovascular: Yes: WNL Respiratory: Yes: WNL Gastrointestinal: Yes: WNL Genitourinary: Yes: WNL Musculoskeletal: Yes: Back Pain Extremities: Yes: WNL Edema: No Peripheral Pulses WNL: Yes Integumentary: Yes: WNL Wound/Incision: Yes: Clean/Dry, Well Approximated, Dressing Dry and Intact Neurological: Yes: WNL ...Motor Strength: WNL Psychiatric: Yes: WNL Labs: CBC, BMP 02/14/19 05:53 02/14/19 05:53 Assessment/Plan 63 yo man S/P 1. L2, L3, L4, L5, S1 bilateral laminectomies facetectomies. 2. L2-S1 posterior instrumentation. 4. L2-L3, L3-L4, L4-L5 PLIF. 5. L2-L3, L3-L4 , L4-L5 insertion biomechanical device. 6. L2-S1 posterolateral arthrodesis. 7. Bone allograft. 8. Bone autograft. 9. Bone marrow aspiration & concentrate autograft. 10. Complex wound closure (30cm). cont pain management. incentive spirometry. cont stool sofeteners to avoid opioid induced constipation. -GI, DVT prophylaxis. -cont zofran for nausea -ID: on ancef ryan-operatively -HLD: cont lipitor. CPK levels ordered and elevated. will DC statin for now. -DC linares when ambulating -PT/OT/OOB as tolerated -labs and meds reviewed. assessment and plan discussed with pt and staff phone calls answered throughout the day. 30 min
[2019-02-14] MEDS ORDERED: ATORVASTATIN CA 20 MG TABLET (FP) PO SCH (22:00)
[2019-02-15 07:27] LABS: HEMATOCRIT 32.6 % (35.4-49); HEMOGLOBIN 11.2 GM/dL (11.7-16.9); MCHC 34.3 g/dl (32.0-35.9); MEAN CELL VOLUME 93.3 fl (80-96); MEAN PLT VOLUME 8.5 fl (7.5-11.1); PLATELET COUNT 220 K/MM3 (134-434); RBC 3.49 M/mm3 (4.00-5.60); RDW 14.8 % (11.9-15.9); WHITE BLOOD COUNT 17.3 K/mm3 (4.0-10.0)
[2019-02-15] MEDS: HYDROmorphone *PCA* 10MG/50ML DISP.SYRIN PCA SCH (07:29)
[2019-02-15 08:01] LABS: BLOOD UREA NITROGEN 15.2 mg/dL (7-18); CALCIUM 8.3 mg/dL (8.5-10.1); CREATININE 0.6 mg/dL (0.55-1.3); PHOSPHOROUS 1.6 mg/dL (2.5-4.9); POTASSIUM 3.7 mmol/L (3.5-5.1)
[2019-02-15] MEDS: PANTOPRAZOLE 40 MG TABLET (FP) PO SCH (09:36)
[2019-02-15] MEDS ORDERED: NAPH,MB-DB/K PH,MBDB POWDER PACKET PO SCH ×2 (10:00→22:00)
[2019-02-15] MEDS ORDERED: oxyCODONE HCL 5 MG TABLET PO PRN ×2 (10:56→12:25)
[2019-02-15] MEDS: OMEGA-3 ACID ETHYL ESTERS (FATTY-ACIDS) 1 GM CAPSULE (FP) PO SCH (11:04)
[2019-02-15] MEDS: SENNOSIDES/DOCUSATE COMBO (SENNA PLUS) TABLET (UD) PO SCH ×2 (11:06→21:10)
--- NOTE | 2019-02-15 11:18 | PN ---
Physical Exam: SUBJECTIVE: Patient seen and examined at the bedside. Stated that he was feeling better but still had back soreness that was well controlled with COMPUTER ART INSTRUCTOR pump. Will start oral pain medications and transition to only orals as tolerating. Has been having bowel movements and has been out of bed. Denies cp, sob, abd pain, n/v/c, fever, chills, weakness, numbness, tingling. OBJECTIVE: Vital Signs Period Temp Pulse Resp BP Sys/Lara Pulse Ox Last 24 Hr 98.3 F-98.4 F 63-124 14-25 140-176/58-92 97-98 GENERAL: The patient is awake, alert, and fully oriented, in no acute distress. HEAD: Normal with no signs of trauma. EYES: PERRL, extraocular movements intact, sclera anicteric, conjunctiva clear. NECK: Trachea midline, full range of motion LUNGS: Breath sounds equal, clear to auscultation bilaterally, no wheezes, no crackles, no accessory muscle use. HEART: Regular rate and rhythm, S1, S2 without murmur or rubs. ABDOMEN: Soft, nontender, nondistended, normoactive bowel sounds, no guarding, no rebound. EXTREMITIES: 2+ pulses, warm, well-perfused, no edema. NEUROLOGICAL: Cranial nerves II through XII grossly intact. Normal speech, normal muscle strength bilaterally upper and lower extremities. PSYCH: Normal mood, normal affect. SKIN: Warm, dry, normal turgor, back dressing dry and intact. Laboratory Results - last 24 hr 02/15/19 02/15/19 06:10 06:10 WBC 17.3 H RBC 3.49 L Hgb 11.2 L Hct 32.6 L MCV 93.3 MCH 32.0 MCHC 34.3 RDW 14.8 Plt Count 220 MPV 8.5 Sodium 138 Potassium 3.7 Chloride 103 Carbon Dioxide 26 Anion Gap 9 BUN 15.2 Creatinine 0.6 Est GFR (CKD-EPI)AfAm 122.29 Est GFR (CKD-EPI)NonAf 105.51 Random Glucose 91 Calcium 8.3 L Phosphorus 1.6 L Active Medications Generic Name Dose Route Start Last Admin Trade Name Freq PRN Reason Stop Dose Admin Al Hydroxide/Mg Hydroxide 30 ml 02/13/19 14:16 02/13/19 22:38 Mylanta Oral Suspension - PO 30 ml Q4H PRN Administration DYSPEPSIA Dexamethasone Sodium Phosphate 4 mg 02/13/19 14:24 Decadron Injection - IVPUSH ONCE PRN NAUSEA AND/OR VOMITING Diphenhydramine HCl 12.5 mg 02/13/19 14:24 Benadryl Injection - IVPUSH ONCE PRN FOR ITCHING Hydromorphone HCl 10 mg 02/13/19 14:30 02/15/19 07:29 Hydromorphone 10 Mg/50 Ml-Ns COMPUTER ART INSTRUCTOR 02/20/19 14:25 10 mg COMPUTER ART INSTRUCTOR HELENE Administration Protocol Magnesium Hydroxide 30 ml 02/13/19 14:16 Milk Of Magnesia - PO PRN PRN CONSTIPATION Ktepw-0-Ewky Ethyl Esters 2 gm 02/14/19 10:00 02/15/19 11:04 Lovaza - PO Not Given DAILY [facility] Ondansetron HCl 4 mg 02/13/19 14:16 02/14/19 07:36 Zofran Injection IVPUSH 4 mg Q6H PRN Administration NAUSEA Oxycodone HCl 5 mg 02/15/19 10:56 Roxicodone - PO Q4H PRN PAIN LEVEL 6-10 Pantoprazole Sodium 40 mg 02/14/19 10:00 02/15/19 09:36 Protonix - PO 40 mg DAILY [facility] Administration Potassium Phos/Sodium Phos 1 packet 02/15/19 10:00 02/15/19 09:36 Phos-Nak Packet - PO 02/15/19 22:01 1 packet BID HELENE Administration Ranitidine HCl 150 mg 02/14/19 10:00 02/15/19 09:36 Zantac - PO 150 mg DAILY [facility] Administration Senna/Docusate Sodium 2 tablet 02/13/19 22:00 02/15/19 11:06 Pericolace - PO 2 tablet BID [facility] Administration ASSESSMENT/PLAN: David Angulo is a 63 year old male with a past medical history of [place] (5 years ago), HLD, GERD, kidney stones, spinal stenosis with neurogenic claudication who is admitted to the ICU for continued monitoring s/p L2-L3, L3-L4, & L4-L5 PLIF w/L2-L5 posterior instrumented spinal fusion with Dr. Harvey. L2-L3, L3-L4, & L4-L5 PLIF w/L2-L5 posterior instrumented spinal fusion spinal stenosis HLD GERD NEUROLOGIC - pain medication as per anesthesia - COMPUTER ART INSTRUCTOR pump - oxycodone 5mg q4h prn, transition to only oral meds when ready - no NSAIDS CARDIOLOGY - continue atorvastatin 20mg daily - post-op labs with no acute derangements RESPIRATORY - encourage incentive spirometry RENAL - no acute issues GASTROINTESTINAL - ranitidine 150mg daily - protonix 40mg daily - zofran and promethazine for nausea - senna colace for constipation GENITOURINARY - linares removed INFECTIOUS DISEASE - received cefazolin intra-op - completed cefazolin course - continue to monitor for signs of infection, fever, WBC count HEMATOLOGY - continue to monitor for signs of bleeding - H/H with no signs of anemia - WBC elevated likely in the setting post-operative inflammation, will continue to follow MUSCULOSKELETAL - OOB as tolerated - PT yesterday, walked 5ft, will need rehab, opted for home rehab due to need to care for - no bending/lifting/twisting for 9-12 months - f/u with Dr. Harvey in outpatient office F/E/N - no standing fluids - continue to monitor electrolytes and transfuse as necessary, hypophospatemia noted and repleted - regular diet LINES - L hand inserted 02/13 PROPHYLAXIS - SCDs - no chemical prophylaxis CODE - full code DISPO - stable for transfer to [facility]-surg floor Visit type - Emergency Visit Emergency Visit: No - New Patient This patient is new to me today: No - Critical Care Critical Care patient: No
--- NOTE | 2019-02-15 11:58 | PN ---
Teaching Attending Note Name of Resident: Arnoldo Isaacs ATTENDING PHYSICIAN STATEMENT I saw and evaluated the patient. I reviewed the resident's note and discussed the case with the resident. I agree with the resident's findings and plan as documented. SUBJECTIVE: Patient seen and examined in the ICU. Awake and alert. Pain improved with use of HOT TAMALE WORKER. No CP or SOB. Intake & Output 02/12/19 02/13/19 02/14/19 02/15/19 23:59 23:59 23:59 23:59 Intake Total 2775 2425 2179 Output Total 1730 1580 3050 Balance 1045 845 -871 Weight 230 lb 230 lb 229 lb 15.074 oz Last Vital Signs Temp Pulse Resp BP Pulse Ox 98.3 F 117 H 20 149/90 98 02/15/19 07:35 02/15/19 11:48 02/15/19 11:48 02/15/19 11:48 02/14/19 18:00 Active Medications Al Hydroxide/Mg Hydroxide (Mylanta Oral Suspension -) 30 ml PO Q4H PRN PRN Reason: DYSPEPSIA Last Admin: 02/13/19 22:38 Dose: 30 ml Dexamethasone Sodium Phosphate (Decadron Injection -) 4 mg IVPUSH ONCE PRN PRN Reason: NAUSEA AND/OR VOMITING Diphenhydramine HCl (Benadryl Injection -) 12.5 mg IVPUSH ONCE PRN PRN Reason: FOR ITCHING Hydromorphone HCl (Hydromorphone 10 Mg/50 Ml-Ns) 10 mg HOT TAMALE WORKER HOT TAMALE WORKER [facility]; Protocol Stop: 02/20/19 14:25 Last Admin: 02/15/19 07:29 Dose: 10 mg Magnesium Hydroxide (Milk Of Magnesia -) 30 ml PO PRN PRN PRN Reason: CONSTIPATION Wqvsw-0-[id number] Ethyl Esters (Lovaza -) 2 gm PO DAILY [facility] Last Admin: 02/15/19 11:04 Dose: Not Given Ondansetron HCl (Zofran Injection) 4 mg IVPUSH Q6H PRN PRN Reason: NAUSEA Last Admin: 02/14/19 07:36 Dose: 4 mg Oxycodone HCl (Roxicodone -) 5 mg PO Q4H PRN PRN Reason: PAIN LEVEL 6-10 Pantoprazole Sodium (Protonix -) 40 mg PO DAILY [facility] Last Admin: 02/15/19 09:36 Dose: 40 mg Potassium Phos/Sodium Phos (Phos-Nak Packet -) 1 packet PO BID [facility] Stop: 02/15/19 22:01 Last Admin: 02/15/19 09:36 Dose: 1 packet Ranitidine HCl (Zantac -) 150 mg PO DAILY [facility] Last Admin: 02/15/19 09:36 Dose: 150 mg Senna/Docusate Sodium (Pericolace -) 2 tablet PO BID [facility] Last Admin: 02/15/19 11:06 Dose: 2 tablet GENERAL: Awake, alert, oriented, in no acute distress. HEAD: Normal with no signs of trauma. EYES: Pupils equal, round and reactive to light, extraocular movements intact, sclera anicteric, conjunctiva clear. No lid lag. EARS, NOSE, THROAT: Ears normal, nares patent, oropharynx clear without exudates. Moist mucous membranes. NECK: Normal range of motion, supple without lymphadenopathy, JVD, or masses. LUNGS: Breath sounds equal, clear to auscultation bilaterally. No wheezes, and no crackles. No accessory muscle use. HEART: Regular rate and rhythm, normal S1 and S2 without murmur, rub or gallop. ABDOMEN: Soft, nontender, not distended, normoactive bowel sounds, no guarding, no rebound, no masses. No hepatomegaly or splenomegaly. MUSCULOSKELETAL: Normal range of motion at all joints. No bony deformities or tenderness. No CVA tenderness. UPPER EXTREMITIES: 2+ pulses, warm, well-perfused. No cyanosis. No clubbing. Cap refill <2 seconds. No peripheral edema. LOWER EXTREMITIES: 2+ pulses, warm, well-perfused. No calf tenderness. No peripheral edema. NEUROLOGICAL: Non-focal exam PSYCHIATRIC: Cooperative. Good eye contact. Appropriate mood and affect. SKIN: Warm, dry, normal turgor, no rashes or lesions noted. Laboratory Results - last 24 hr 02/15/19 02/15/19 06:10 06:10 WBC 17.3 H RBC 3.49 L Hgb 11.2 L Hct 32.6 L MCV 93.3 MCH 32.0 MCHC 34.3 RDW 14.8 Plt Count 220 MPV 8.5 Sodium 138 Potassium 3.7 Chloride 103 Carbon Dioxide 26 Anion Gap 9 BUN 15.2 Creatinine 0.6 Est GFR (CKD-EPI)AfAm 122.29 Est GFR (CKD-EPI)NonAf 105.51 Random Glucose 91 Calcium 8.3 L Phosphorus 1.6 L ASSESSMENT/PLAN: POD #2: 1. L2, L3, L4, L5, S1 bilateral laminectomies facetectomies. 2. L2-S1 posterior instrumentation. 3. L2-L3, L3-L4, L4-L5 PLIF. 4. L2-L3, L3-L4, L4-L5 insertion biomechanical device. 5. L2-S1 posterolateral arthrodesis. 6. Bone allograft. 7. Bone autograft. 8. Bone marrow aspiration & concentrate autograft. 9. Complex wound closure (30cm) Spinal stenosis HLD GERD Leukocytosis: etiology to be determined Pain control VTE prophylaxis O2 as needed Incentive Spirometry PO as tolerated OOB to chair Monitor WBC Floor / DC planning Dr Cancino
[2019-02-15] MEDS ORDERED: MAG HYDROX/AL HYDROX/SIMETH 30 ML UNIT-DOSE CUP PO PRN (12:25)
[2019-02-15] MEDS ORDERED: MAGNESIUM HYDROX 2400MG/30ML ORAL SUSPENSION 30 ML CUP PO PRN (12:25)
[2019-02-15] MEDS ORDERED: HYDROmorphone *PCA* 10MG/50ML DISP.SYRIN PCA SCH (12:25)
[2019-02-15] MEDS ORDERED: ONDANSETRON 4 MG/2 ML VIAL IVPUSH PRN (12:25)
--- NOTE | 2019-02-15 18:03 | PN ---
Progress Note, Physician Chief Complaint: + for back pain denies chest pain, palpitations, feevr, diarrhea. - Current Medication List Current Medications: Active Medications Al Hydroxide/Mg Hydroxide (Mylanta Oral Suspension -) 30 ml PO Q4H PRN PRN Reason: DYSPEPSIA Hydromorphone HCl (Hydromorphone 10 Mg/50 Ml-Ns) 10 mg MOTHER HELPER MOTHER HELPER HELENE; Protocol Stop: 02/20/19 14:25 Magnesium Hydroxide (Milk Of Magnesia -) 30 ml PO PRN PRN PRN Reason: CONSTIPATION Cvrle-1-Syrw Ethyl Esters (Lovaza -) 2 gm PO DAILY [facility] Ondansetron HCl (Zofran Injection) 4 mg IVPUSH Q6H PRN PRN Reason: NAUSEA Oxycodone HCl (Roxicodone -) 5 mg PO Q4H PRN PRN Reason: PAIN LEVEL 6-10 Pantoprazole Sodium (Protonix -) 40 mg PO DAILY [facility] Potassium Phos/Sodium Phos (Phos-Nak Packet -) 1 packet PO BID [facility] Stop: 02/15/19 22:01 Ranitidine HCl (Zantac -) 150 mg PO DAILY [facility] Senna/Docusate Sodium (Pericolace -) 2 tablet PO BID [facility] - Objective Vital Signs: Vital Signs Temperature 98.3 F 02/15/19 07:35 Pulse Rate 96 H 02/15/19 14:00 Respiratory Rate 14 02/15/19 14:00 Blood Pressure 145/87 02/15/19 14:00 O2 Sat by Pulse Oximetry (%) 98 02/14/19 18:00 Constitutional: Yes: Well Nourished, No Distress, Calm Eyes: Yes: WNL HENT: Yes: WNL Neck: Yes: WNL Cardiovascular: Yes: WNL Respiratory: Yes: WNL Gastrointestinal: Yes: Hypoactive Bowel Sounds Genitourinary: Yes: WNL Musculoskeletal: Yes: Back Pain, Joint Stiffness Extremities: Yes: WNL Edema: No Peripheral Pulses WNL: Yes Integumentary: Yes: WNL Wound/Incision: Yes: Clean/Dry, Well Approximated, Dressing Dry and Intact Neurological: Yes: WNL Psychiatric: Yes: WNL Labs: CBC, BMP 02/15/19 06:10 02/15/19 06:10 Assessment/Plan 63 yo man S/P 1. L2, L3, L4, L5, S1 bilateral laminectomies facetectomies. 2. L2-S1 posterior instrumentation. 4. L2-L3, L3-L4, L4-L5 PLIF. 5. L2-L3, L3-L4 , L4-L5 insertion biomechanical device. 6. L2-S1 posterolateral arthrodesis. 7. Bone allograft. 8. Bone autograft. 9. Bone marrow aspiration & concentrate autograft. 10. Complex wound closure (30cm). cont pain management. incentive spirometry. cont stool sofeteners to avoid opioid induced constipation. -GI, DVT prophylaxis. -cont zofran for nausea -ID: on ancef ryan-operatively -hypophosphatemia: supplemented. -HLD: cont lipitor. CPK levels ordered and elevated. off statin. -DC milagros when ambulating -PT/OT/OOB as tolerated -labs and meds reviewed. assessment and plan discussed with pt and staff DC home planned for this weekend.
--- NOTE | 2019-02-15 18:39 | PATH ---
Surgical Pathology Report Patient Name: HOWIE LEVINE [facility]. Rec. #: [id number] /Age/Gender: 1955 (Age: 63) / M Account: [id number] Location: [facility] SKIN FORMER Taken: 02/13/2019 Received: 02/13/2019 Reported: 02/15/2019 Physicians: Tom Harvey M.D. Specimen(s) Received DISC L2-S1 Clinical History Spinal stenosis Final Diagnosis DISC, L2-S1, POSTERIOR LUMBAR INTERBODY FUSION: BENIGN INTERVERTEBRAL DISC TISSUE AND BONE. Electronically Signed Marya Bella M.D. Gross Description Received in formalin labeled "L2-S1 disc," is a 6.0 x 4.0 x 0.5 cm aggregate of cervantes fragments of fibrocartilaginous tissue. A correspondence representative portion is submitted in one cassette. /02/14/2019 saudi02/14/2019
[2019-02-16 08:19] LABS: HEMATOCRIT 32.7 % (35.4-49); HEMOGLOBIN 11.3 GM/dL (11.7-16.9); MCH 31.8 pg (25.7-33.7); MCHC 34.6 g/dl (32.0-35.9); MEAN CELL VOLUME 92.1 fl (80-96); PLATELET COUNT 235 K/MM3 (134-434); RBC 3.56 M/mm3 (4.00-5.60); RDW 14.4 % (11.9-15.9); WHITE BLOOD COUNT 12.9 K/mm3 (4.0-10.0)
[2019-02-16] MEDS ORDERED: ACETAMINOPHEN 500 MG TABLET (FP) PO PRN ×3 (08:23→17:41)
[2019-02-16] MEDS ORDERED: oxyCODONE HCL 5 MG TABLET PO SCH (08:30)
[2019-02-16 08:46] LABS: CALCIUM 8.4 mg/dL (8.5-10.1); CREATININE 0.5 mg/dL (0.55-1.3); PHOSPHOROUS 1.6 mg/dL (2.5-4.9); POTASSIUM 3.5 mmol/L (3.5-5.1)
[2019-02-16] MEDS: SENNOSIDES/DOCUSATE COMBO (SENNA PLUS) TABLET (UD) PO SCH ×3 (09:13→21:14)
[2019-02-16] MEDS: oxyCODONE HCL 5 MG TABLET PO PRN ×3 (09:41→19:31)
[2019-02-16] MEDS ORDERED: RANITIDINE HCL 150 MG TABLET (FP) PO SCH (10:00)
[2019-02-16] MEDS ORDERED: OMEGA-3 ACID ETHYL ESTERS (FATTY-ACIDS) 1 GM CAPSULE (FP) PO SCH (10:00)
[2019-02-16] MEDS ORDERED: PANTOPRAZOLE 40 MG TABLET (FP) PO SCH (10:00)
[2019-02-16] MEDS ORDERED: NAPH,MB-DB/K PH,MBDB POWDER PACKET PO SCH ×2 (10:00→22:00)
--- NOTE | 2019-02-16 10:00 | PN ---
Physical Exam: SUBJECTIVE: Patient seen and examined at the bedside. Had been ambulating better with PT yesterday, will still require home PT, and rolling walker for home. Continue to have some lower back pain. Transitioning to oral pain medications today as tolerated. Denies cp, sob, abd pain, fever, chills, n/v, weakness, numbness, tingling. OBJECTIVE: Vital Signs Period Temp Pulse Resp BP Sys/Lara Pulse Ox Last 24 Hr 97.6 F-99.7 F 96-117 14-21 137-161/75-90 96-98 GENERAL: The patient is awake, alert, and fully oriented, in no acute distress. HEAD: Normal with no signs of trauma. EYES: PERRL, extraocular movements intact, sclera anicteric, conjunctiva clear. NECK: Trachea midline, full range of motion LUNGS: Breath sounds equal, clear to auscultation bilaterally, no wheezes, no crackles, no accessory muscle use. HEART: Regular rate and rhythm, S1, S2 without murmur or rubs. ABDOMEN: Soft, nontender, nondistended, normoactive bowel sounds, no guarding, no rebound. EXTREMITIES: 2+ pulses, warm, well-perfused, no edema. NEUROLOGICAL: Cranial nerves II through XII grossly intact. Normal speech, normal muscle strength bilaterally upper and lower extremities. PSYCH: Normal mood, normal affect. SKIN: Warm, dry, normal turgor, back dressing dry and intact. Laboratory Results - last 24 hr 02/16/19 02/16/19 08:07 08:07 WBC 12.9 H RBC 3.56 L Hgb 11.3 L Hct 32.7 L MCV 92.1 MCH 31.8 MCHC 34.6 RDW 14.4 Plt Count 235 MPV 8.0 Sodium 137 Potassium 3.5 Chloride 101 Carbon Dioxide 25 Anion Gap 11 BUN 17.0 Creatinine 0.5 L Est GFR (CKD-EPI)AfAm 131.80 Est GFR (CKD-EPI)NonAf 113.72 Random Glucose 87 Calcium 8.4 L Phosphorus 1.6 L Active Medications Generic Name Dose Route Start Last Admin Trade Name Freq PRN Reason Stop Dose Admin Acetaminophen 1,000 mg 02/16/19 08:32 Tylenol - PO Q6H PRN PAIN LEVEL 1-6 Al Hydroxide/Mg Hydroxide 30 ml 02/15/19 12:25 Mylanta Oral Suspension - PO Q4H PRN DYSPEPSIA Hydromorphone HCl 10 mg 02/15/19 12:25 Hydromorphone 10 Mg/50 Ml-Ns VP DESIGN 02/20/19 14:25 VP DESIGN HELENE Protocol Magnesium Hydroxide 30 ml 02/15/19 12:25 Milk Of Magnesia - PO PRN PRN CONSTIPATION Mqmpv-7-Ueby Ethyl Esters 2 gm 02/16/19 10:00 02/16/19 09:08 Lovaza - PO 2 gm DAILY HELENE Administration Ondansetron HCl 4 mg 02/15/19 12:25 Zofran Injection IVPUSH Q6H PRN NAUSEA Oxycodone HCl 5 mg 02/16/19 08:32 02/16/19 09:41 Roxicodone - PO 5 mg Q4H PRN Administration PAIN LEVEL 7 - 10 Pantoprazole Sodium 40 mg 02/16/19 10:00 02/16/19 09:08 Protonix - PO 40 mg DAILY HELENE Administration Potassium Phos/Sodium Phos 1 packet 02/16/19 10:00 Phos-Nak Packet - PO 02/16/19 22:01 BID HELENE Ranitidine HCl 150 mg 02/16/19 10:00 02/16/19 09:15 Zantac - PO 150 mg DAILY HELENE Administration Senna/Docusate Sodium 2 tablet 02/15/19 22:00 02/16/19 09:13 Pericolace - PO 2 tablet BID HELENE Administration ASSESSMENT/PLAN: David Angulo is a 63 year old male with a past medical history of SD (5 years ago), HLD, GERD, kidney stones, spinal stenosis with neurogenic claudication who is admitted to the ICU for continued monitoring s/p L2-L3, L3-L4, & L4-L5 PLIF w/L2-L5 posterior instrumented spinal fusion with Dr. Harvey. L2-L3, L3-L4, & L4-L5 PLIF w/L2-L5 posterior instrumented spinal fusion spinal stenosis HLD GERD NEUROLOGIC - pain medication as per anesthesia - oxycodone 5mg q4h prn - tylenol 1000mg q6h prn - no NSAIDS CARDIOLOGY - continue atorvastatin 20mg daily - post-op labs with no acute derangements RESPIRATORY - encourage incentive spirometry RENAL - no acute issues GASTROINTESTINAL - ranitidine 150mg daily - protonix 40mg daily - zofran and promethazine for nausea - senna colace for constipation - having flatus GENITOURINARY - linares removed INFECTIOUS DISEASE - received cefazolin intra-op - completed cefazolin course - afebrile, downtrending WBC, continue to monitor for signs of infection HEMATOLOGY - H/H with no signs of anemia - WBC elevated likely in the setting post-operative inflammation, downtrending MUSCULOSKELETAL - OOB as tolerated - PT yesterday, walked 50ft, will need rehab, opted for home rehab due to need to care for , needs referral for rolling walker - no bending/lifting/twisting for 9-12 months - f/u with Dr. Harvey in outpatient office F/E/N - no standing fluids - continue to monitor electrolytes and transfuse as necessary, hypophospatemia noted and repleted - regular diet LINES - L hand inserted 02/13 PROPHYLAXIS - SCDs - no chemical prophylaxis CODE - full code DISPO - stable for transfer to [facility]-surg floor Visit type - Emergency Visit Emergency Visit: No - New Patient This patient is new to me today: No - Critical Care Critical Care patient: No
--- NOTE | 2019-02-16 10:10 | PN ---
Teaching Attending Note Name of Resident: Arnoldo Isaacs ATTENDING PHYSICIAN STATEMENT I saw and evaluated the patient. I reviewed the resident's note and discussed the case with the resident. I agree with the resident's findings and plan as documented. SUBJECTIVE: Patient seen and examined in the ICU. Awake and alert. Pain improved with use of PERSONAL LINES ACCOUNT MANAGER. Has been taking minimal oral pain meds. No CP or SOB. Intake & Output 02/13/19 02/14/19 02/15/19 02/16/19 23:59 23:59 23:59 23:59 Intake Total 2775 2425 2179 Output Total 1730 1580 3240 Balance 1045 845 -1061 Weight 230 lb 229 lb Last Vital Signs Temp Pulse Resp BP Pulse Ox 97.6 F 103 H 19 157/89 98 02/16/19 08:34 02/16/19 08:34 02/16/19 08:34 02/16/19 08:34 02/16/19 08:34 Active Medications Acetaminophen (Tylenol -) 1,000 mg PO Q6H PRN PRN Reason: PAIN LEVEL 1-6 Al Hydroxide/Mg Hydroxide (Mylanta Oral Suspension -) 30 ml PO Q4H PRN PRN Reason: DYSPEPSIA Hydromorphone HCl (Hydromorphone 10 Mg/50 Ml-Ns) 10 mg PERSONAL LINES ACCOUNT MANAGER PERSONAL LINES ACCOUNT MANAGER [facility]; Protocol Stop: 02/20/19 14:25 Magnesium Hydroxide (Milk Of Magnesia -) 30 ml PO PRN PRN PRN Reason: CONSTIPATION Yrvef-7-Ouip Ethyl Esters (Lovaza -) 2 gm PO DAILY [facility] Last Admin: 02/16/19 09:08 Dose: 2 gm Ondansetron HCl (Zofran Injection) 4 mg IVPUSH Q6H PRN PRN Reason: NAUSEA Oxycodone HCl (Roxicodone -) 5 mg PO Q4H PRN PRN Reason: PAIN LEVEL 7 - 10 Last Admin: 02/16/19 09:41 Dose: 5 mg Pantoprazole Sodium (Protonix -) 40 mg PO DAILY [facility] Last Admin: 02/16/19 09:08 Dose: 40 mg Potassium Phos/Sodium Phos (Phos-Nak Packet -) 1 packet PO BID [facility] Stop: 02/16/19 22:01 Ranitidine HCl (Zantac -) 150 mg PO DAILY [facility] Last Admin: 02/16/19 09:15 Dose: 150 mg Senna/Docusate Sodium (Pericolace -) 2 tablet PO BID HELENE Last Admin: 02/16/19 09:13 Dose: 2 tablet GENERAL: Awake, alert, oriented, in no acute distress. HEAD: Normal with no signs of trauma. EYES: Pupils equal, round and reactive to light, extraocular movements intact, sclera anicteric, conjunctiva clear. No lid lag. EARS, NOSE, THROAT: Ears normal, nares patent, oropharynx clear without exudates. Moist mucous membranes. NECK: Normal range of motion, supple without lymphadenopathy, JVD, or masses. LUNGS: Breath sounds equal, clear to auscultation bilaterally. No wheezes, and no crackles. No accessory muscle use. HEART: Regular rate and rhythm, normal S1 and S2 without murmur, rub or gallop. ABDOMEN: Soft, nontender, not distended, normoactive bowel sounds, no guarding, no rebound, no masses. No hepatomegaly or splenomegaly. MUSCULOSKELETAL: Normal range of motion at all joints. No bony deformities or tenderness. No CVA tenderness. UPPER EXTREMITIES: 2+ pulses, warm, well-perfused. No cyanosis. No clubbing. Cap refill <2 seconds. No peripheral edema. LOWER EXTREMITIES: 2+ pulses, warm, well-perfused. No calf tenderness. No peripheral edema. NEUROLOGICAL: Non-focal exam PSYCHIATRIC: Cooperative. Good eye contact. Appropriate mood and affect. SKIN: Warm, dry, normal turgor, no rashes or lesions noted. Laboratory Results - last 24 hr 02/16/19 02/16/19 08:07 08:07 WBC 12.9 H RBC 3.56 L Hgb 11.3 L Hct 32.7 L MCV 92.1 MCH 31.8 MCHC 34.6 RDW 14.4 Plt Count 235 MPV 8.0 Sodium 137 Potassium 3.5 Chloride 101 Carbon Dioxide 25 Anion Gap 11 BUN 17.0 Creatinine 0.5 L Est GFR (CKD-EPI)AfAm 131.80 Est GFR (CKD-EPI)NonAf 113.72 Random Glucose 87 Calcium 8.4 L Phosphorus 1.6 L ASSESSMENT/PLAN: POD #3: 1. L2, L3, L4, L5, S1 bilateral laminectomies facetectomies. 2. L2-S1 posterior instrumentation. 3. L2-L3, L3-L4, L4-L5 PLIF. 4. L2-L3, L3-L4, L4-L5 insertion biomechanical device. 5. L2-S1 posterolateral arthrodesis. 6. Bone allograft. 7. Bone autograft. 8. Bone marrow aspiration & concentrate autograft. 9. Complex wound closure (30cm) Spinal stenosis HLD GERD Resolving Leukocytosis Pain control VTE prophylaxis O2 as needed Incentive Spirometry PO as tolerated OOB to chair Monitor WBC Floor / DC planning Dr Cancino
[2019-02-16] MEDS ORDERED: HYDROmorphone *PCA* 10MG/50ML DISP.SYRIN PCA SCH (17:41)
[2019-02-16] MEDS ORDERED: oxyCODONE HCL 5 MG TABLET PO PRN (17:41)
[2019-02-16] MEDS ORDERED: MAG HYDROX/AL HYDROX/SIMETH 30 ML UNIT-DOSE CUP PO PRN (17:41)
[2019-02-16] MEDS ORDERED: MAGNESIUM HYDROX 2400MG/30ML ORAL SUSPENSION 30 ML CUP PO PRN (17:41)
[2019-02-16] MEDS ORDERED: ONDANSETRON 4 MG/2 ML VIAL IVPUSH PRN (17:41)
--- NOTE | 2019-02-16 18:02 | PN ---
Progress Note, Physician Chief Complaint: + for back pain denies chest pain, palpitations, feevr, diarrhea. - Current Medication List Current Medications: Active Medications Acetaminophen (Tylenol -) 1,000 mg PO Q6H PRN PRN Reason: PAIN LEVEL 4 - 6 Al Hydroxide/Mg Hydroxide (Mylanta Oral Suspension -) 30 ml PO Q4H PRN PRN Reason: DYSPEPSIA Magnesium Hydroxide (Milk Of Magnesia -) 30 ml PO PRN PRN PRN Reason: CONSTIPATION Rpzbl-6-Ryqc Ethyl Esters (Lovaza -) 2 gm PO DAILY [facility] Ondansetron HCl (Zofran Injection) 4 mg IVPUSH Q6H PRN PRN Reason: NAUSEA Oxycodone HCl (Roxicodone -) 5 mg PO Q4H PRN PRN Reason: PAIN LEVEL 7 - 10 Pantoprazole Sodium (Protonix -) 40 mg PO DAILY [facility] Potassium Phos/Sodium Phos (Phos-Nak Packet -) 1 packet PO BID [facility] Stop: 02/16/19 22:01 Ranitidine HCl (Zantac -) 150 mg PO DAILY [facility] Senna/Docusate Sodium (Pericolace -) 2 tablet PO BID [facility] - Objective Vital Signs: Vital Signs Temperature 98.1 F 02/16/19 11:33 Pulse Rate 110 H 02/16/19 16:00 Respiratory Rate 21 H 02/16/19 16:00 Blood Pressure 132/89 02/16/19 16:00 O2 Sat by Pulse Oximetry (%) 98 02/16/19 08:34 Constitutional: Yes: Well Nourished, Anxious Eyes: Yes: WNL HENT: Yes: WNL Neck: Yes: WNL Cardiovascular: Yes: WNL Respiratory: Yes: WNL Gastrointestinal: Yes: WNL ...Rectal Exam: Yes: Deferred Genitourinary: Yes: WNL Musculoskeletal: Yes: Back Pain, Joint Stiffness Extremities: Yes: WNL Edema: No Peripheral Pulses WNL: Yes Integumentary: Yes: WNL Wound/Incision: Yes: Clean/Dry, Well Approximated Neurological: Yes: WNL Psychiatric: Yes: WNL Labs: CBC, BMP 02/16/19 08:07 02/16/19 08:07 Assessment/Plan 63 yo man S/P 1. L2, L3, L4, L5, S1 bilateral laminectomies facetectomies. 2. L2-S1 posterior instrumentation. 4. L2-L3, L3-L4, L4-L5 PLIF. 5. L2-L3, L3-L4 , L4-L5 insertion biomechanical device. 6. L2-S1 posterolateral arthrodesis. 7. Bone allograft. 8. Bone autograft. 9. Bone marrow aspiration & concentrate autograft. 10. Complex wound closure (30cm). cont pain management. incentive spirometry. cont stool softeners to avoid opioid induced constipation. -GI, DVT prophylaxis. -cont zofran for nausea -ID: on ancef ryan-operatively -hypophosphatemia: supplemented. -HLD: cont lipitor. CPK levels ordered and elevated. off statin. -DC linares when ambulating -PT/OT/OOB as tolerated -labs and meds reviewed. assessment and plan discussed with pt and staff DC home planned for this weekend. pain is uncontrolled for now. will try to DC home tomorrow if possible.
[2019-02-16] MEDS: ACETAMINOPHEN 325 MG TABLET (FP) PO PRN (19:30)
[2019-02-16] MEDS: CEFAZOLIN 2 GM/D5W 2 GM/50 ML ML IVPB SCH (20:53)
[2019-02-17] MEDS: ACETAMINOPHEN 325 MG TABLET (FP) PO PRN ×5 (01:05→21:35)
[2019-02-17] MEDS: oxyCODONE HCL 5 MG TABLET PO PRN ×5 (01:08→21:36)
[2019-02-17] MEDS: SENNOSIDES/DOCUSATE COMBO (SENNA PLUS) TABLET (UD) PO SCH ×2 (09:48→21:37)
[2019-02-17] MEDS: RANITIDINE HCL 150 MG TABLET (FP) PO SCH (09:51)
[2019-02-17] MEDS: PANTOPRAZOLE 40 MG TABLET (FP) PO SCH (09:51)
[2019-02-17] MEDS: OMEGA-3 ACID ETHYL ESTERS (FATTY-ACIDS) 1 GM CAPSULE (FP) PO SCH (09:52)
--- NOTE | 2019-02-17 12:09 | PN ---
Progress Note, Physician Chief Complaint: + for back pain denies chest pain, palpitations, feevr, diarrhea. - Current Medication List Current Medications: Active Medications Acetaminophen (Tylenol -) 325 mg PO Q4H PRN PRN Reason: PAIN LEVEL 6-10 Al Hydroxide/Mg Hydroxide (Mylanta Oral Suspension -) 30 ml PO Q4H PRN PRN Reason: DYSPEPSIA Magnesium Hydroxide (Milk Of Magnesia -) 30 ml PO PRN PRN PRN Reason: CONSTIPATION Asffe-4-Wpar Ethyl Esters (Lovaza -) 2 gm PO DAILY [facility] Last Admin: 02/17/19 09:52 Dose: Not Given Ondansetron HCl (Zofran Injection) 4 mg IVPUSH Q6H PRN PRN Reason: NAUSEA Oxycodone HCl (Roxicodone -) 5 mg PO Q6H PRN PRN Reason: PAIN LEVEL 6-10 Last Admin: 02/17/19 06:44 Dose: 5 mg Pantoprazole Sodium (Protonix -) 40 mg PO DAILY [facility] Last Admin: 02/17/19 09:51 Dose: Not Given Ranitidine HCl (Zantac -) 150 mg PO DAILY [facility] Last Admin: 02/17/19 09:51 Dose: Not Given Senna/Docusate Sodium (Pericolace -) 2 tablet PO BID [facility] Last Admin: 02/17/19 09:48 Dose: 2 tablet - Objective Vital Signs: Vital Signs Temperature 98.7 F 02/17/19 09:00 Pulse Rate 102 H 02/17/19 09:00 Respiratory Rate 20 02/17/19 09:00 Blood Pressure 140/78 02/17/19 09:00 O2 Sat by Pulse Oximetry (%) 99 02/17/19 09:00 Constitutional: Yes: Well Nourished, Anxious Eyes: Yes: WNL HENT: Yes: WNL Neck: Yes: WNL Cardiovascular: Yes: WNL Respiratory: Yes: WNL Musculoskeletal: Yes: Back Pain Extremities: Yes: WNL Peripheral Pulses WNL: No Integumentary: Yes: WNL Wound/Incision: Yes: Clean/Dry, Well Approximated, Dressing Dry and Intact Neurological: Yes: WNL ...Motor Strength: WNL Labs: CBC, BMP 02/16/19 08:07 02/16/19 08:07 Assessment/Plan 63 yo man S/P 1. L2, L3, L4, L5, S1 bilateral laminectomies facetectomies. 2. L2-S1 posterior instrumentation. 4. L2-L3, L3-L4, L4-L5 PLIF. 5. L2-L3, L3-L4 , L4-L5 insertion biomechanical device. 6. L2-S1 posterolateral arthrodesis. 7. Bone allograft. 8. Bone autograft. 9. Bone marrow aspiration & concentrate autograft. 10. Complex wound closure (30cm). cont pain management. incentive spirometry. cont stool softeners to avoid opioid induced constipation. percocet changed to q4h as pain still uncontrolled -GI, DVT prophylaxis. -cont zofran for nausea -ID: on ancef ryan-operatively -hypophosphatemia: supplemented. -HLD: cont lipitor. CPK levels ordered and elevated. off statin. -DC linares when ambulating -PT/OT/OOB as tolerated -labs and meds reviewed. assessment and plan discussed with pt and staff. phone calls answered throughout the day.30 min
[2019-02-18] MEDS ORDERED: PT OWN MED DRAWER 7, Y5N ONE (00:27)
[2019-02-18] MEDS: ACETAMINOPHEN 325 MG TABLET (FP) PO PRN ×6 (02:29→22:53)
[2019-02-18] MEDS: oxyCODONE HCL 5 MG TABLET PO PRN ×6 (02:32→22:54)
[2019-02-18] MEDS: OMEGA-3 ACID ETHYL ESTERS (FATTY-ACIDS) 1 GM CAPSULE (FP) PO SCH (10:21)
[2019-02-18] MEDS: RANITIDINE HCL 150 MG TABLET (FP) PO SCH (10:21)
[2019-02-18] MEDS: PANTOPRAZOLE 40 MG TABLET (FP) PO SCH (10:22)
[2019-02-18] MEDS: SENNOSIDES/DOCUSATE COMBO (SENNA PLUS) TABLET (UD) PO SCH ×2 (10:22→21:05)
--- NOTE | 2019-02-18 11:54 | PN ---
Progress Note (short form) - Note Progress Note: Contacted by Dr Tom Harvey regarding dressing change. Dressing removed, steri- strips in place, well adhered with moderate dried blood centrally. No erythema or drainage noted from incision. New gauze and tegaderms applied. Pt tolerated well. elisa attending Dr Tom Harvey
--- NOTE | 2019-02-18 21:00 | PN ---
Progress Note, Physician Chief Complaint: + for back pain denies chest pain, palpitations, feevr, diarrhea. - Current Medication List Current Medications: Active Medications Acetaminophen (Tylenol -) 325 mg PO Q4H PRN PRN Reason: PAIN LEVEL 6-10 Last Admin: 02/18/19 18:44 Dose: 325 mg Al Hydroxide/Mg Hydroxide (Mylanta Oral Suspension -) 30 ml PO Q4H PRN PRN Reason: DYSPEPSIA Magnesium Hydroxide (Milk Of Magnesia -) 30 ml PO PRN PRN PRN Reason: CONSTIPATION Ianxw-5-Cfmc Ethyl Esters (Lovaza -) 2 gm PO DAILY [facility] Last Admin: 02/18/19 10:21 Dose: Not Given Ondansetron HCl (Zofran Injection) 4 mg IVPUSH Q6H PRN PRN Reason: NAUSEA Oxycodone HCl (Roxicodone -) 5 mg PO Q4H PRN PRN Reason: PAIN LEVEL 6-10 Last Admin: 02/18/19 18:42 Dose: 5 mg Pantoprazole Sodium (Protonix -) 40 mg PO DAILY [facility] Last Admin: 02/18/19 10:22 Dose: 40 mg Ranitidine HCl (Zantac -) 150 mg PO DAILY [facility] Last Admin: 02/18/19 10:21 Dose: 150 mg Senna/Docusate Sodium (Pericolace -) 2 tablet PO BID [facility] Last Admin: 02/18/19 10:22 Dose: 2 tablet - Objective Vital Signs: Vital Signs Temperature 98.3 F 02/18/19 20:07 Pulse Rate 97 H 02/18/19 20:07 Respiratory Rate 20 02/18/19 20:07 Blood Pressure 136/80 02/18/19 20:07 O2 Sat by Pulse Oximetry (%) 97 02/18/19 09:00 Constitutional: Yes: Well Nourished, No Distress Eyes: Yes: WNL HENT: Yes: WNL Neck: Yes: WNL Cardiovascular: Yes: WNL Respiratory: Yes: WNL Gastrointestinal: Yes: WNL ...Rectal Exam: Yes: WNL Genitourinary: Yes: WNL Musculoskeletal: Yes: Back Pain Extremities: Yes: WNL Edema: No Peripheral Pulses WNL: Yes Integumentary: Yes: WNL Wound/Incision: Yes: Clean/Dry, Well Approximated, Dressing Dry and Intact Neurological: Yes: WNL ...Motor Strength: WNL Psychiatric: Yes: WNL Labs: CBC, BMP 02/16/19 08:07 02/16/19 08:07 Assessment/Plan 63 yo man S/P 1. L2, L3, L4, L5, S1 bilateral laminectomies facetectomies. 2. L2-S1 posterior instrumentation. 4. L2-L3, L3-L4, L4-L5 PLIF. 5. L2-L3, L3-L4 , L4-L5 insertion biomechanical device. 6. L2-S1 posterolateral arthrodesis. 7. Bone allograft. 8. Bone autograft. 9. Bone marrow aspiration & concentrate autograft. 10. Complex wound closure (30cm). cont pain management. incentive spirometry. cont stool softeners to avoid opioid induced constipation. percocet changed to q4h as pain still uncontrolled. better managed today. will continue current dose. -GI, DVT prophylaxis. -cont zofran for nausea -ID: on ancef ryan-operatively -hypophosphatemia: supplemented. -HLD: cont lipitor. CPK levels ordered and elevated. off statin. -PT/OT/OOB as tolerated -labs and meds reviewed. assessment and plan discussed with pt and staff. phone calls answered throughout the day possible DC home tomorrow if stable.30 min
[2019-02-19] MEDS: ACETAMINOPHEN 325 MG TABLET (FP) PO PRN ×5 (03:07→20:13)
[2019-02-19] MEDS: oxyCODONE HCL 5 MG TABLET PO PRN ×5 (03:07→20:13)
[2019-02-19 07:51] LABS: BASO % 0.9 % (0-2.0); EOS % 1.7 % (0-4.5); HEMOGLOBIN 11.7 GM/dL (11.7-16.9); LYMPH % 13.9 % (8-40); MCH 31.8 pg (25.7-33.7); MCHC 34.3 g/dl (32.0-35.9); MEAN CELL VOLUME 92.9 fl (80-96); MEAN PLT VOLUME 7.8 fl (7.5-11.1); MONO % 10.4 % (3.8-10.2); NEUT % 73.1 % (42.8-82.8); PLATELET COUNT 340 K/MM3 (134-434); RBC 3.66 M/mm3 (4.00-5.60); RDW 14.1 % (11.9-15.9); WHITE BLOOD COUNT 14.3 K/mm3 (4.0-10.0)
[2019-02-19 08:03] LABS: BLOOD UREA NITROGEN 20.6 mg/dL (7-18); CALCIUM 8.6 mg/dL (8.5-10.1); CREATININE 0.7 mg/dL (0.55-1.3); POTASSIUM 4.2 mmol/L (3.5-5.1)
[2019-02-19] MEDS: RANITIDINE HCL 150 MG TABLET (FP) PO SCH (10:23)
[2019-02-19] MEDS: OMEGA-3 ACID ETHYL ESTERS (FATTY-ACIDS) 1 GM CAPSULE (FP) PO SCH (10:23)
[2019-02-19] MEDS: PANTOPRAZOLE 40 MG TABLET (FP) PO SCH (10:24)
[2019-02-19] MEDS: SENNOSIDES/DOCUSATE COMBO (SENNA PLUS) TABLET (UD) PO SCH ×2 (10:25→21:21)
--- NOTE | 2019-02-19 11:16 | PN ---
Progress Note, Physician Chief Complaint: + for back pain denies chest pain, palpitations, feevr, diarrhea. - Current Medication List Current Medications: Active Medications Acetaminophen (Tylenol -) 325 mg PO Q4H PRN PRN Reason: PAIN LEVEL 6-10 Last Admin: 02/19/19 06:51 Dose: 325 mg Al Hydroxide/Mg Hydroxide (Mylanta Oral Suspension -) 30 ml PO Q4H PRN PRN Reason: DYSPEPSIA Magnesium Hydroxide (Milk Of Magnesia -) 30 ml PO PRN PRN PRN Reason: CONSTIPATION Syjnf-2-Rrdw Ethyl Esters (Lovaza -) 2 gm PO DAILY [facility] Last Admin: 02/19/19 10:23 Dose: Not Given Ondansetron HCl (Zofran Injection) 4 mg IVPUSH Q6H PRN PRN Reason: NAUSEA Oxycodone HCl (Roxicodone -) 5 mg PO Q4H PRN PRN Reason: PAIN LEVEL 6-10 Last Admin: 02/19/19 06:52 Dose: 5 mg Pantoprazole Sodium (Protonix -) 40 mg PO DAILY [facility] Last Admin: 02/19/19 10:24 Dose: 40 mg Ranitidine HCl (Zantac -) 150 mg PO DAILY [facility] Last Admin: 02/19/19 10:23 Dose: 150 mg Senna/Docusate Sodium (Pericolace -) 2 tablet PO BID [facility] Last Admin: 02/19/19 10:25 Dose: 2 tablet - Objective Vital Signs: Vital Signs Temperature 98.2 F 02/19/19 06:00 Pulse Rate 96 H 02/19/19 06:00 Respiratory Rate 20 02/19/19 06:00 Blood Pressure 122/73 02/19/19 06:00 O2 Sat by Pulse Oximetry (%) 97 02/18/19 21:00 Constitutional: Yes: Well Nourished, Anxious Eyes: Yes: WNL HENT: Yes: WNL Neck: Yes: WNL Cardiovascular: Yes: WNL Respiratory: Yes: WNL Gastrointestinal: Yes: Hypoactive Bowel Sounds ...Rectal Exam: Yes: Deferred Genitourinary: Yes: WNL Musculoskeletal: Yes: Back Pain Extremities: Yes: WNL Edema: No Peripheral Pulses WNL: Yes Integumentary: Yes: WNL Wound/Incision: Yes: Clean/Dry, Well Approximated, Dressing Dry and Intact Neurological: Yes: WNL ...Motor Strength: WNL Psychiatric: Yes: WNL Labs: CBC, BMP 02/19/19 06:17 02/19/19 06:17 Assessment/Plan 63 yo man S/P 1. L2, L3, L4, L5, S1 bilateral laminectomies facetectomies. 2. L2-S1 posterior instrumentation. 4. L2-L3, L3-L4, L4-L5 PLIF. 5. L2-L3, L3-L4 , L4-L5 insertion biomechanical device. 6. L2-S1 posterolateral arthrodesis. 7. Bone allograft. 8. Bone autograft. 9. Bone marrow aspiration & concentrate autograft. 10. Complex wound closure (30cm). cont pain management. incentive spirometry. cont stool softeners to avoid opioid induced constipation. percocet changed to q4h as pain still uncontrolled. better managed. will continue current dose. -GI, DVT prophylaxis. -cont zofran for nausea -ID: on ancef ryan-operatively -hypophosphatemia: supplemented. -HLD: cont lipitor. CPK levels ordered and elevated. off statin. -PT/OT/OOB as tolerated -labs and meds reviewed. assessment and plan discussed with pt and staff. phone calls answered throughout the day possible DC home by the end of the week. social work on board. 30 min
[2019-02-19 13:07] VITALS: BMI 30.8
[2019-02-19 14:43] LABS: ANISOCYTOSIS 0; MACROCYTOSIS 0; PLATELET ESTIMATE NORMAL
[2019-02-20] MEDS: ACETAMINOPHEN 325 MG TABLET (FP) PO PRN (00:18)
[2019-02-20] MEDS: oxyCODONE HCL 5 MG TABLET PO PRN ×4 (00:19→13:22)
[2019-02-20] MEDS: RANITIDINE HCL 150 MG TABLET (FP) PO SCH (09:13)
[2019-02-20] MEDS: OMEGA-3 ACID ETHYL ESTERS (FATTY-ACIDS) 1 GM CAPSULE (FP) PO SCH ×2 (09:13→09:29)
[2019-02-20] MEDS: PANTOPRAZOLE 40 MG TABLET (FP) PO SCH (09:13)
[2019-02-20] MEDS: SENNOSIDES/DOCUSATE COMBO (SENNA PLUS) TABLET (UD) PO SCH (09:14)
[2019-02-20 15:59] VITALS: BP 133/77; PULSE 112; TEMP 98.4
--- NOTE | 2019-02-20 16:56 | DS ---
Physical Examination Vital Signs: Vital Signs Temperature 98.4 F 02/20/19 12:00 Pulse Rate 112 H 02/20/19 12:00 Respiratory Rate 20 02/20/19 12:00 Blood Pressure 133/77 02/20/19 12:00 O2 Sat by Pulse Oximetry (%) 97 02/19/19 21:00 Constitutional: Yes: Well Nourished, No Distress Eyes: Yes: WNL HENT: Yes: WNL Neck: Yes: WNL Cardiovascular: Yes: WNL Respiratory: Yes: WNL Gastrointestinal: Yes: WNL ...Rectal Exam: Yes: WNL Renal/: Yes: WNL Musculoskeletal: Yes: WNL Extremities: Yes: WNL Edema: No Peripheral Pulses WNL: Yes Integumentary: Yes: WNL Wound/Incision: Yes: Clean/Dry, Well Approximated Neurological: Yes: WNL Labs: CBC, BMP 02/19/19 06:17 02/19/19 06:17 Discharge Summary Reason For Visit: SPINAL STENOSIS Hospital Course: 63 yo man S/P 1. L2, L3, L4, L5, S1 bilateral laminectomies facetectomies. 2. L2-S1 posterior instrumentation. 4. L2-L3, L3-L4, L4-L5 PLIF. 5. L2-L3, L3-L4 , L4-L5 insertion biomechanical device. 6. L2-S1 posterolateral arthrodesis. 7. Bone allograft. 8. Bone autograft. 9. Bone marrow aspiration & concentrate autograft. 10. Complex wound closure (30cm). cont pain management. incentive spirometry. cont stool softeners to avoid opioid induced constipation. percocet changed to q4h as pain still uncontrolled. better managed. will continue current dose. -GI, DVT prophylaxis. -cont zofran for nausea -ID: on ancef ryan-operatively -hypophosphatemia: supplemented. -HLD: cont lipitor. CPK levels ordered and elevated. off statin. -PT/OT/OOB as tolerated -labs and meds reviewed. Condition: Good - Instructions Disposition: HOME - Home Medications Comprehensive Discharge Medication List: Ambulatory Orders Aspirin [Aspirin EC] 81 mg PO DAILY 02/12/19 Diclofenac Sodium [Voltaren -] 75 mg PO HS 02/12/19 Icosapent Ethyl [Vascepa] 2 gm PO DAILY 02/12/19 Lactose-Reduced Food/Fiber [Isosource 1.5 Oswaldo Tube Feed Lq] 1,000 ml PO DAILY Oxycodone HCl/Acetaminophen [Percocet 5-325 mg Tablet] 1 - 2 tab PO PRN Ranitidine HCl [Zantac] 150 mg PO DAILY 02/12/19 Simvastatin [Zocor -] 40 mg PO DAILY 02/12/19
[2019-02-20] MEDS ORDERED: ACETAMINOPHEN 325 MG TABLET (FP) PO ONE (17:45)
[2019-02-20] MEDS ORDERED: oxyCODONE HCL 5 MG TABLET PO ONE (17:45)
== END 2019-02-20 18:38 | disposition home or self-care (01) | DRG 455 ==
LOC: JSAMEDAYSX 02-13 06:07 → JICU 02-13 17:23 → J8W 02-16 17:38
PROVIDERS: ADMIT Orthopaedic Surgery Orthopaedic Surgery of the Spine; ATTEND Orthopaedic Surgery Orthopaedic Surgery of the Spine
PROC: 0SG1071 Fusion of 2 or more Lumbar Vertebral Joints with Autologous Tissue Substitute, Posterior Approach, Posterior Column, Open Approach (ICD-10-PCS; 2019-02-13)
PROC: 0SB20ZZ Excision of Lumbar Vertebral Disc, Open Approach (ICD-10-PCS; 2019-02-13)
PROC: 0SG3071 Fusion of Lumbosacral Joint with Autologous Tissue Substitute, Posterior Approach, Posterior Column, Open Approach (ICD-10-PCS; 2019-02-13)
PROC: 0SB40ZZ Excision of Lumbosacral Disc, Open Approach (ICD-10-PCS; 2019-02-13)
PROC: 4A11X4G Monitoring of Peripheral Nervous Electrical Activity, Intraoperative, External Approach (ICD-10-PCS; 2019-02-13)
PROC: 07DR0ZZ Extraction of Iliac Bone Marrow, Open Approach (ICD-10-PCS; 2019-02-13)
PROC: B01BZZZ Fluoroscopy of Spinal Cord (ICD-10-PCS; 2019-02-13)
PROC: 0SG10AJ Fusion of 2 or more Lumbar Vertebral Joints with Interbody Fusion Device, Posterior Approach, Anterior Column, Open Approach (ICD-10-PCS; principal; 2019-02-13 08:00)
DX: M48.062 Spinal stenosis, lumbar region with neurogenic claudication (principal); M54.16 Radiculopathy, lumbar region; M40.209 Unspecified kyphosis, site unspecified; K21.9 Gastro-esophageal reflux disease without esophagitis; D72.829 Elevated white blood cell count, unspecified; E83.39 Other disorders of phosphorus metabolism; N20.0 Calculus of kidney; I25.2 Old myocardial infarction; E78.5 Hyperlipidemia, unspecified; I10 Essential (primary) hypertension
CPT/HCPCS: 36415; 76000-TC-FY; 80048; 82550; 82553; 83735; 84100; 85025; 85027; 86850; 86900; 86901; 88304-TC; 94760; 97116-GP; 97162-GP; J0131; J1644